=== PATIENT | male | born 1955 | race Caucasian/White ===

== ENCOUNTER 2017-06-29 10:13 | Inpatient (IN) | payer OTHER ==
[2017-06-29] MEDS ORDERED: PANTOPRAZOLE 40 MG/10 ML VIAL IVP STA (10:37)
[2017-06-29] MEDS ORDERED: SODIUM CHLORIDE 0.9% 1,000 ML IV STA (10:37)
[2017-06-29] MEDS ORDERED: DICYCLOMINE 10 MG/ML 2 ML AMP IM STA (10:37)
[2017-06-29] MEDS ORDERED: ONDANSETRON 4 MG/2 ML VIAL IVP STA (10:37)
--- NOTE | 2017-06-29 10:40 | ED ---
General Adult HPI - General Chief complaint: Nausea/Vomiting/Diarrhea Stated complaint: DIARRHEA Time Seen by Provider: 06/29/17 10:28 Source: patient, family, RN notes reviewed Mode of arrival: ambulatory Limitations: no limitations - History of Present Illness Initial comments: Patient is a pleasant 62-year-old male presenting to the emergency Department with diarrhea. Onset of symptoms was just over a week ago. Patient is having diarrhea at least 10 times daily. Patient feels dehydrated. Patient states he has lost approximately 16 pounds in the last couple of weeks. Patient saw his doctor yesterday and again today. Patient has lost more weight since yesterday. Patient had blood work done yesterday with concerns for potassium level and dehydration. Patient has lack of appetite. No vomiting. Patient did have mild blood attribute to a hemorrhoid however none recently. No mucous in the diarrhea. - Related Data Home Medications Medication Instructions Recorded Confirmed Adalimumab [Humira] 80 mg SQ Q14D 12/17/14 06/29/17 Allergies Allergy/AdvReac Type Severity Reaction Status Date / Time No Known Allergies Allergy Verified 06/29/17 10:47 Review of Systems ROS Statement: Those systems with pertinent positive or pertinent negative responses have been documented in the HPI. ROS Other: All systems not noted in ROS Statement are negative. Constitutional: Denies: fever Eyes: Denies: eye pain ENT: Denies: ear pain Respiratory: Denies: dyspnea Cardiovascular: Denies: chest pain Endocrine: Reports: fatigue Gastrointestinal: Reports: abdominal pain (Cramping, mild at this time), nausea , diarrhea. Denies: vomiting, melena Genitourinary: Denies: dysuria Musculoskeletal: Denies: back pain Skin: Denies: rash Neurological: Denies: headache Past Medical History Past Medical History: GERD/Reflux, Hypertension, Rheumatoid Arthritis (RA) History of Any Multi-Drug Resistant Organisms: None Reported Additional Past Surgical History / Comment(s): sinus surgery Past Anesthesia/Blood Transfusion Reactions: No Reported Reaction Past Psychological History: No Psychological Hx Reported Smoking Status: Current every day smoker Past Alcohol Use History: Daily Past Drug Use History: None Reported - Past Family History Mother Family Medical History: No Reported History General Exam Limitations: no limitations General appearance: alert, in no apparent distress Head exam: Present: atraumatic Eye exam: Present: normal appearance, PERRL ENT exam: Present: normal oropharynx Neck exam: Present: normal inspection Respiratory exam: Present: normal lung sounds bilaterally Cardiovascular Exam: Present: regular rate, normal rhythm GI/Abdominal exam: Present: soft, tenderness (Mild diffuse tenderness). Absent : distended, guarding, rebound, rigid, pulsatile mass Extremities exam: Present: normal inspection Neurological exam: Present: alert Psychiatric exam: Present: normal affect, normal mood Skin exam: Present: normal color Course Vital Signs 06/29/17 10:21 Temperature 96.8 F L Pulse Rate 102 H Respiratory 18 Rate Blood Pressure 109/75 O2 Sat by Pulse 98 Oximetry Medical Decision Making - Medical Decision Making Patient reevaluated and resting comfortably in bed. Case discussed with practitioner Iris, who will admit for Dr. valentin, covering for Dr. Chu. - Lab Data Result diagrams: 06/29/17 10:40 06/29/17 10:40 Lab Results 06/29/17 06/29/17 Range/Units 10:40 10:40 WBC 14.6 H (3.8-10.6) k/uL RBC 4.28 L (4.30-5.90) m/uL Hgb 16.1 (13.0-17.5) gm/dL Hct 47.8 (39.0-53.0) % MCV 111.5 H (80.0-100.0) fL MCH 37.5 H (25.0-35.0) pg MCHC 33.7 (31.0-37.0) g/dL RDW 16.4 H (11.5-15.5) % Plt Count 296 (150-450) k/uL Neutrophils % 76 % Lymphocytes % 7 % Monocytes % 13 % Eosinophils % 1 % Basophils % 1 % Neutrophils # 11.1 H (1.3-7.7) k/uL Lymphocytes # 1.1 (1.0-4.8) k/uL Monocytes # 1.9 H (0-1.0) k/uL Eosinophils # 0.1 (0-0.7) k/uL Basophils # 0.1 (0-0.2) k/uL Anisocytosis Slight Macrocytosis Marked Sodium 130 L (137-145) mmol/L Potassium 5.1 (3.5-5.1) mmol/L Chloride 96 L (98-107) mmol/L Carbon Dioxide 22 (22-30) mmol/L Anion Gap 12 mmol/L BUN 34 H (9-20) mg/dL Creatinine 1.15 (0.66-1.25) mg/dL Est GFR (MDRD) Af Amer >60 (>60 ml/min/1.73 sqM) Est GFR (MDRD) Non-Af >60 (>60 ml/min/1.73 sqM) Glucose 106 H (74-99) mg/dL Calcium 9.1 (8.4-10.2) mg/dL Total Bilirubin 0.5 (0.2-1.3) mg/dL AST 23 (17-59) U/L ALT 33 (21-72) U/L Alkaline Phosphatase 94 (38-126) U/L Total Protein 6.5 (6.3-8.2) g/dL Albumin 4.0 (3.5-5.0) g/dL Amylase 72 (30-110) U/L Lipase 249 (23-300) U/L - Radiology Data Radiology results: image reviewed (Abdominal x-ray shows nonspecific abdomen.) Disposition Clinical Impression: Dehydration, Diarrhea Disposition: ADMITTED IP TO THIS [facility] Referrals: Marcos Chu MD [Primary Care Provider] - 1-2 days Decision Time: 12:54
[2017-06-29 11:03] LABS: ALT 33 U/L (21-72); AST 23 U/L (17-59); Alkaline Phosphatase 94 U/L (38-126); Amylase 72 U/L (30-110); Anion Gap 12 mmol/L; Blood Urea Nitrogen 34 mg/dL (9-20); Calcium 9.1 mg/dL (8.4-10.2); Carbon Dioxide 22 mmol/L (22-30); Chloride 96 mmol/L (98-107); Glucose 106 mg/dL (74-99); Lipase 249 U/L (23-300); Potassium 5.1 mmol/L (3.5-5.1); Sodium 130 mmol/L (137-145); Total Bilirubin 0.5 mg/dL (0.2-1.3); Total Protein 6.5 g/dL (6.3-8.2)
[2017-06-29 11:06] LABS: Anisocytosis Slight; Basophils # (A) 0.1 k/uL (0-0.2); Basophils % (A) 1 %; Eosinophils # (A) 0.1 k/uL (0-0.7); Eosinophils % (A) 1 %; HCT 47.8 % (39.0-53.0); HGB 16.1 gm/dL (13.0-17.5); Lymphocytes # (A) 1.1 k/uL (1.0-4.8); Lymphocytes % (A) 7 %; MCH 37.5 pg (25.0-35.0); MCHC 33.7 g/dL (31.0-37.0); MCV 111.5 fL (80.0-100.0); Macrocytosis Marked; Mean Platelet Volume 8.3; Monocytes # (A) 1.9 k/uL (0-1.0); Monocytes % (A) 13 %; Neutrophils # (A) 11.1 k/uL (1.3-7.7); Neutrophils % (A) 76 %; Platelet Count 296 k/uL (150-450); RBC 4.28 m/uL (4.30-5.90); RDW 16.4 % (11.5-15.5); WBC 14.6 k/uL (3.8-10.6)
--- NOTE | 2017-06-29 11:09 | XR ---
EXAMINATION TYPE: XR KUB DATE OF EXAM: 06/29/2017 COMPARISON: NONE HISTORY: Diarrhea abdominal pain TECHNIQUE: One view abdominal series FINDINGS: The osseous structures are intact. The bowel gas pattern is nonspecific. Lung bases are clear. Curv ature of the spine noted. Calcifications in the lower pelvis are likely vascular. Arthropathy of the hips. IMPRESSION: 1. Nonspecific abdomen.
[2017-06-29] MEDS ORDERED: NALOXONE 0.4 MG/ML 1 ML VIAL IV PRN (12:55)
[2017-06-29] MEDS ORDERED: SODIUM CHLORIDE 0.9% 1,000 ML IV SCH (13:00)
[2017-06-29 13:17] LABS: INR 1.1 (<1.2); Prothrombin Time 10.9 sec (9.0-12.0)
[2017-06-29 14:41] LABS: Appearance,Urine Clear (Clear); Bilirubin,Urine Negative (Negative); Blood,Urine Trace (Negative); Color,Urine Yellow; Glucose,Urine (UA) Negative (Negative); Hyaline Casts,Urine 6 /lpf (0-2); Ketones,Urine 1+ (Negative); Leukocyte Esterase,Urine Negative (Negative); Mucus,Urine Few /hpf; Nitrite,Urine Negative (Negative); PH, Urine 5.5 (5.0-8.0); Protein,Urine Trace (Negative); RBC,Urine 1 /hpf (0-5); Specific Gravity,Urine 1.015 (1.001-1.035); Squamous Epithelial Cell,Urine <1 /hpf (0-4); Urobilinogen,Urine <2.0 mg/dL (<2.0); WBC,Urine <1 /hpf (0-5)
--- NOTE | 2017-06-29 19:55 | HP ---
HISTORY AND PHYSICAL DATE OF ADMISSION: 06/29/2017 PRESENT COMPLAINT: Diarrhea. HISTORY OF PRESENTING COMPLAINT: This is a pleasant 62-year-old patient of Dr. Chu. Chronic stable medical conditions include rheumatoid arthritis for which he is on Humira; GERD, some COPD. The patient is long-standing smoker. Six days ago, patient started with severe diarrhea up to 15 times a day, some abdominal pain. No nausea, vomiting. Denies any obvious fever. Continued for few days. The patient did go down to see Dr. Chu in the office and returned this morning, was given Gatorade, still having diarrhea through yesterday evening and hence, he was sent in today. The patient has lost a few pounds in the span of the 6 days. Nobody else has been sick. Today morning actually the diarrhea started getting better. The patient is barely eating and lost a few pounds, he states. Nobody else was sick. REVIEW OF SYSTEMS: CONSTITUTIONAL: Weak, tired, weight loss. HEENT: None. RESPIRATORY: Occasional wheezing. CARDIOVASCULAR: None. GASTROINTESTINAL: As above. GENITOURINARY: None. MUSCULOSKELETAL: None. Arthritic pain in joints. DERMATOLOGICAL: None. HEMATOLOGIC: None. LYMPHATIC: None. PSYCHIATRY: None. NEUROLOGICAL: Denies weakness. 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 PAST SURGICAL HISTORY: Sinus surgery, colonoscopy, bronchoscopy. SOCIAL HISTORY: . Smokes a few cigarettes here and there for many years. The patient is employed. FAMILY HISTORY: Reviewed, noncontributory to presentation. HOME MEDICATIONS: Humira 80 mg subcu every 14 days. ALLERGIES: None. EXAMINATION: VITAL SIGNS: On presentation, temperature 96.8, pulse 102, respirations 18, blood pressure 109/75, pulse ox 98% on room air. GENERAL APPEARANCE: Thin built, BMI of 13.6, sitting up. EYES: Pupils equal. Conjunctivae normal. HEENT: Oral cavity normal. NECK: JVD not raised. Mass not palpable. RESPIRATORY: Effort normal. LUNGS: Decreased breath sounds. CARDIOVASCULAR: First and second sounds normal. No edema. ABDOMEN: Soft. Minimal tenderness. No guarding, rigidity. Liver and spleen not palpable. LYMPHATIC: No lymph nodes palpable in neck or axillae. PSYCHIATRY: Alert and oriented x3. Mood and affect normal. NEUROLOGICAL: Pupils equal. Cranial nerves grossly intact. Power and sensation grossly intact. INVESTIGATIONS: White count 14.6, hemoglobin 16.1. Potassium 5.1, BUN 34, creatinine 1.15. ASSESSMENT: 1. Acute severe gastroenteritis, likely viral in a patient who is immunosuppressed because of Humira. 2. Chronic bilateral rheumatoid arthritis maintained on Humira. 3. Gastroesophageal reflux disease. 4. Chronic obstructive pulmonary disease in a current smoker. 5. Chronic nicotine dependence. Patient is a smoker. 6. Hyponatremia from decreased salt intake. PLAN: Patient is being aggressively hydrated, put on a liquid diet. The patient's diarrhea actually has gotten better today; hence, will hold off any antibiotics. Will give 3 days of Cipro and Flagyl. Care was discussed with the patient and . Questions were answered. MMODL / IJN: [id number] /
[2017-06-29] MEDS: LACTATED RINGERS 1,000 ML IV SCH (22:02)
[2017-06-29] MEDS: CIPROFLOXACIN HCL 500 MG TAB PO SCH (22:02)
[2017-06-29] MEDS: metroNIDAZOLE 500 MG TAB PO SCH (22:02)
[2017-06-29] MEDS: NICOTINE 14MG/24HR PATCH TRANSDERM SCH ×2 (22:02→22:13)
[2017-06-30] MEDS: LACTATED RINGERS 1,000 ML IV SCH ×2 (05:32→13:34)
[2017-06-30] MEDS: NICOTINE 14MG/24HR PATCH TRANSDERM SCH (07:47)
[2017-06-30 08:31] VITALS: RESP 16
[2017-06-30 08:47] LABS: ALT 31 U/L (21-72); AST 19 U/L (17-59); Albumin 2.4 g/dL (3.5-5.0); Alkaline Phosphatase 63 U/L (38-126); Anion Gap 5 mmol/L; Blood Urea Nitrogen 16 mg/dL (9-20); Calcium 7.8 mg/dL (8.4-10.2); Carbon Dioxide 26 mmol/L (22-30); Chloride 99 mmol/L (98-107); Glucose 83 mg/dL (74-99); Potassium 3.9 mmol/L (3.5-5.1); Sodium 130 mmol/L (137-145); Total Bilirubin 0.4 mg/dL (0.2-1.3); Total Protein 4.3 g/dL (6.3-8.2)
[2017-06-30 08:58] LABS: Anisocytosis Slight; Basophils % (A) 0 %; Eosinophils # (A) 0.1 k/uL (0-0.7); Eosinophils % (A) 1 %; HCT 36.3 % (39.0-53.0); Lymphocytes # (A) 0.7 k/uL (1.0-4.8); Lymphocytes % (A) 10 %; MCH 36.8 pg (25.0-35.0); MCV 111.4 fL (80.0-100.0); Macrocytosis Marked; Mean Platelet Volume 8.6; Monocytes # (A) 0.9 k/uL (0-1.0); Monocytes % (A) 12 %; Neutrophils # (A) 5.4 k/uL (1.3-7.7); Neutrophils % (A) 75 %; Platelet Count 185 k/uL (150-450); RBC 3.26 m/uL (4.30-5.90); RDW 16.3 % (11.5-15.5); WBC 7.2 k/uL (3.8-10.6)
[2017-06-30] MEDS ORDERED: PANTOPRAZOLE 40 MG/10 ML VIAL IV SCH (09:00)
[2017-06-30] MEDS: CIPROFLOXACIN HCL 500 MG TAB PO SCH (09:15)
[2017-06-30] MEDS: metroNIDAZOLE 500 MG TAB PO SCH ×2 (09:15→15:49)
[2017-06-30] MEDS ORDERED: ADALIMUMAB 80 MG SQ SCH (10:00)
[2017-06-30 10:57] LABS: Poikilocytosis (M) Present
[2017-06-30 10:58] LABS: Target Cells Present
[2017-06-30 12:00] VITALS: BMI 13.5
[2017-06-30 15:36] VITALS: BP 108/76; PULSE 71; TEMP 98.7
[2017-06-30] MEDS ORDERED: LACTOBACILLUS ACIDOPH & BULGAR 1 EACH PACKET PO SCH (16:00)
--- NOTE | 2017-06-30 19:05 | DS ---
DISCHARGE SUMMARY DATE OF ADMISSION: 06/29/2017. DATE OF DISCHARGE: 06/30/2017 FINAL DIAGNOSES: 1. Acute severe gastritis, likely viral in an immunosuppressed patient because of Humira. 2. Chronic bilateral rheumatoid arthritis, maintained on Humira. 3. Gastroesophageal reflux disease. 4. Chronic obstructive pulmonary disease in a current smoker. 5. Chronic nicotine dependence; patient is a smoker. 6. Hyponatremia from decreased salt intake. HOSPITAL COURSE: This patient presented with severe gastroenteritis, getting dehydrated. Patient was empirically put on Flagyl and Cipro just to cover any bacterial component. Diarrhea is much improved. He was hydrated. The patient was told to remain on a soft diet and take is easy and follow with his family doctor. BUN and creatinine are normal. PHYSICAL EXAMINATION: Abdomen is soft, nontender. LUNGS: Decreased breath sounds. DISCHARGE MEDICATIONS: 1. Humira 80 mg subcutaneously every 14 days. 2. Cipro 500 mg p.o. b.i.d.; 4 tablets. 3. Lactinex 1 tablet p.o. t.i.d.; 30 tablets. 4. Nicotine patch. 5. Flagyl 500 mg t.i.d.; 6 tablets. Follow up with Dr. Chu in 3 days. Diet soft, bland. MMODL / IJN: [id number] /
[2017-07-01] MEDS ORDERED: ADALIMUMAB 40 MG SQ SCH (09:00)
[2017-07-07 18:11] LABS: Cryptosporidium parvum Not detected (Not detected); Isospora belli Not detected (Not detected); Microsporidium Not detected (Not detected); Routine Ova and Parasites Not detected
== END 2017-06-30 16:47 | disposition home or self-care (01) | DRG 392 ==
LOC: EC 10:13 → 5MS5E 12:55 → 4MS4W 15:44
PROVIDERS: ADMIT Hospitalist; ATTEND Hospitalist
DX: A08.4 Viral intestinal infection, unspecified (principal); E87.1 Hypo-osmolality and hyponatremia; E86.0 Dehydration; F17.210 Nicotine dependence, cigarettes, uncomplicated; I10 Essential (primary) hypertension; J44.9 Chronic obstructive pulmonary disease, unspecified; K21.9 Gastro-esophageal reflux disease without esophagitis; M06.9 Rheumatoid arthritis, unspecified; Z85.21 Personal history of malignant neoplasm of larynx; Z92.3 Personal history of irradiation; Z79.899 Other long term (current) drug therapy
CPT/HCPCS: 36415; 74018; 80053; 81001; 82150; 83690; 85025; 85610; 85730; 87045; 87046; 87177; 87207; 87209; 87324; 89055; 96361; 96372; 96374; 96375; 99285

== ENCOUNTER → 2018-12-04 | Outpatient (CLI) | payer BC ==
--- NOTE | 2018-12-04 13:07 | CT ---
EXAMINATION TYPE: CT soft tissue neck w con DATE OF EXAM: 12/04/2018 12:11 PM COMPARISON: None HISTORY: Epiglottis lesion CT DLP: 322.9 mGycm Automated exposure control for dose reduction was used. CONTRAST: CT scan of the neck is performed following with IV Contrast, patient injected with 100 mL of Isovue 3 00. Axial images are obtained, coronal and sagittal reformatted images are reviewed. FINDINGS: Airway: No gross abnormality seen. Extensive centrilobular emphysematous changes are present within t he visualized portions of the lungs, apical scarring is present bilaterally. Bronchial wall thickenin g noted. Parotid/submandibular glands: No gross abnormality seen. Carotid/Vascular Structures: Proximal left subclavian stenosis is present. No evident proximal manager of internal al carotid artery stenosis Osseous Structures: Unremarkable Other: No evident adenopathy. Skull base is normal. Orbits are unremarkable. Patient's epiglottis is not well-defined and may be foreshortened IMPRESSION: Limitations as described. No evident adenopathy.
== END | disposition home or self-care (01) ==
LOC: RADCTMAIN 11:44
PROVIDERS: ATTEND Otolaryngology
DX: D38.0 Neoplasm of uncertain behavior of larynx (principal)
CPT/HCPCS: 70491; Q9967

== ENCOUNTER 2019-01-09 11:17 | Day surgery (SDC) | payer BC ==
[2019-01-07 08:47] VITALS: BMI 14.6
[~2019-01-09 11:17] MED LIST: DEXAMETHASONE SOD PHOSPHATE 10 MG/ML 1 ML VIAL IV ONE; FAMOTIDINE 20 MG/2 ML VIAL IV ONE; LACTATED RINGERS 1,000 ML IV SCH; LIDOCAINE 1% 20 ML VIAL (10MG/ML) FOR IV START INTRADERMA PRN; ONDANSETRON 4 MG/2 ML VIAL IVP ONE
[2019-01-09] MEDS ORDERED: LACTATED RINGERS 1,000 ML IV ONE (13:09)
[2019-01-09] MEDS ORDERED: LIDOCAINE 1% INJ 10MG/ML (20 ML MDV) ONE (13:46)
[2019-01-09] MEDS ORDERED: MIDAZOLAM 2 MG/2 ML VIAL ONE (13:46)
[2019-01-09] MEDS ORDERED: DEXAMETHASONE SOD PHOS (MDV) 100 MG/10 ML VIAL ONE (13:46)
[2019-01-09] MEDS ORDERED: PROPOFOL 10 MG/ML 20 ML VIAL IV ONE (13:46)
[2019-01-09] MEDS ORDERED: SUCCINYLCHOLINE CHLORIDE 100 MG/5 ML SYR IV ONE (13:46)
[2019-01-09] MEDS ORDERED: fentaNYL (PF) 50 MCG/ML 2 ML AMP ONE (13:46)
--- NOTE | 2019-01-09 14:23 | P.OP ---
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 He's had difficulties over the last several months with sore throat and dysphagia due to the soreness. The laryngeal surface epiglottis appeared abnormal on flexible laryngoscopy Operative Findings: Exophytic but ulcerative lesion involving the entire laryngeal surface of the epiglottis approximate 2.5 MM ears across Description of Procedure: Patient brought in the operative suite and placed in a supine position. Patient underwent induction of general anesthesia with oral endotracheal intubation without difficulty. The patient was prepped and draped in usual aseptic fashion. The patient had digital palpation of the base of tongue and vallecula with no abnormalities palpated. The tooth guard was placed and rigid esophagoscopy was performed to a level of 35 cm from the upper incisors with no abnormalities noted and no mucosal trauma created. This was then withdrawn. Direct laryngoscopy was performed with systematic evaluation of the base of tongue vallecula bilateral piriform sinus post cricoid area and endolarynx. Other than the epiglottis no abnormalities were noted. The epiglottis was brought into good visualization and the laryngoscope was placed in suspension. Flexible laryngoscopy was performed through the laryngoscope to evaluate the distal trachea and primary and secondary bronchi with no abnormalities noted. Bronchoscope was then withdrawn. Multiple biopsies were then taken of the laryngeal surface epiglottis and sent for permanent section. Hemostasis was gained spontaneously. The laryngoscope and tooth guard were then removed. The patient was allowed to emerge from general anesthesia having tolerated procedure well was excised in the operating suite and transferred to the postop recovery area in satisfactory condition.
[2019-01-09 14:42] VITALS: RESP 16; TEMP 97.4
[2019-01-09 15:54] VITALS: BP 132/86; PULSE 63
== END 2019-01-09 16:28 | disposition home or self-care (01) ==
LOC: OR 11:17
PROVIDERS: ATTEND Otolaryngology
DX: C32.1 Malignant neoplasm of supraglottis (principal); J45.909 Unspecified asthma, uncomplicated; J43.9 Emphysema, unspecified; I10 Essential (primary) hypertension; M06.9 Rheumatoid arthritis, unspecified; H26.9 Unspecified cataract; F17.200 Nicotine dependence, unspecified, uncomplicated; Z92.3 Personal history of irradiation; Z79.2 Long term (current) use of antibiotics; Z79.1 Long term (current) use of non-steroidal anti-inflammatories (NSAID); Z79.82 Long term (current) use of aspirin; Z79.52 Long term (current) use of systemic steroids; Z79.899 Other long term (current) drug therapy; Z91.048 Other nonmedicinal substance allergy status; Z98.890 Other specified postprocedural states; Z82.0 Family history of epilepsy and other diseases of the nervous system; Z82.49 Family history of ischemic heart disease and other diseases of the circulatory system
CPT/HCPCS: 43200; 31535; 88305; 88342; 88341; J2250; J1100 ×2; J2405; J2001; J3010; J0330; J2704

== ENCOUNTER → 2019-02-09 | Outpatient (CLI) | payer BC ==
--- NOTE | 2019-02-11 09:00 | PE ---
EXAMINATION TYPE: PET CT fusion skull to thigh DATE OF EXAM: 02/09/2019 COMPARISON: 12/04/2018 CT Prior PET/CT: None HISTORY: Head and neck cancer larynx TECHNIQUE: Following the intravenous administration of 11.429 mCi of F-18 FDG, whole body images are performed from the skull base to the midthigh. Images are reviewed on the computer in the coronal, axial, and sagittal planes. Reconstructed rotating images are created on independent workstation and reviewed on the computer. A localization and attenuation correction CT is performed in conjunction with the PET scan. DLP: 24.13+160.03 mGycm SCAN: Initial Blood glucose: 97 mg/dL Average Mediastinum SUV: 1.32 Average Liver SUV: 1.93 FINDINGS: NECK: There is uptake at the bilateral tonsillar pillars. This measures 3.78 on the right and 3.82 o n the left. PET image 43. Uptake is also present along the epiglottis. This measures 4.83, PET image 60. Suspicious uptake with in the right fossa of Rosenmuller is not evident. Findings appear more focal on the dedicated head an d neck imaging. THORAX: No abnormal uptake ABDOMEN: No abnormal uptake PELVIS: No abnormal uptake OSSEOUS STRUCTURES: No abnormal uptake LOCALIZATION CT: There is some fullness to the right fossa of Rosenmuller.. Consider direct visualiza tion. Right apical scarring may be present. The ascending thoracic aorta at the level the main pulmon alexandru artery is 3.6 cm. The main pulmonary artery the bifurcation is 3.0 cm. COMPARISON: No significant change from soft tissue neck CT. IMPRESSION: 1. Uptake within the epiglottis compatible with the patient's neoplasm. 2. Increased uptake within the bilateral tonsillar pillars. No metastatic disease is not excluded. 3. Distant metastasis is not otherwise evident. 4. There is some fullness within the right fossa of Rosenmuller compared to the left without increase d uptake. Direct visualization however is recommended.
== END | disposition home or self-care (01) ==
LOC: RADPETMAIN 11:49
PROVIDERS: ATTEND Otolaryngology
DX: C32.8 Malignant neoplasm of overlapping sites of larynx (principal)
CPT/HCPCS: 78815; A9552

== ENCOUNTER 2019-08-08 10:21 | Emergency (ER) | payer BC ==
[2019-08-08 10:48] VITALS: BP 137/95; PULSE 87; TEMP 97.7
[2019-08-08] MEDS ORDERED: HYDROmorphone 0.5 MG/0.5 ML SYRINGE IM STA (11:26)
--- NOTE | 2019-08-08 12:00 | ED ---
Recheck HPI - General Chief Complaint: Recheck/Abnormal Lab/Rx Stated Complaint: feeding tube pulled out of stomach Time Seen by Provider: 08/08/19 10:54 Source: patient Mode of arrival: ambulatory Limitations: no limitations - History of Present Illness Initial Comments: 64-year-old male presenting today for chief complaint of PEG tube follow-up. Patient states he was letting the dog out when and he got his peg tube caught and it pulled out with balloon inflated. PEG tube was placed February 2019. Patient states the bleeding has been controlled initially there is bleeding coming from the site of the PEG tube. Patient has any other complaints upon arrival patient appears well signs acute distress PEG tube is a 20-Tongan Justin. remaining ROS (-). - Related Data Home Medications Medication Instructions Recorded Confirmed Aspirin 2 tab PO DAILY 01/07/19 01/07/19 Cholecalciferol (Vitamin D3) 2,000 unit PO DAILY 01/07/19 01/07/19 [Vitamin D3] Famotidine 40 mg PO DAILY 01/07/19 01/07/19 Fluticasone Nasal Pease [Flonase 2 spr EA NOSTRIL DAILY 01/07/19 01/07/19 Nasal Pease] Folic Acid 1 mg PO DAILY 01/07/19 01/07/19 Losartan/Hydrochlorothiazide 0.5 tab PO DAILY 01/07/19 01/07/19 [Losartan-Hctz 100-25 mg Tab] Metoclopramide [Reglan] 10 mg PO DAILY 01/07/19 01/07/19 Montelukast [Singulair] 10 mg PO DAILY 01/07/19 01/07/19 Omeprazole 40 mg PO DAILY 01/07/19 01/07/19 Tiotropium 18 Mcg/Puff [Spiriva] 1 puff INHALATION DAILY 01/07/19 01/07/19 Vit C/E/Zn/Coppr/Lutein/Zeaxan 1 each PO DAILY 01/07/19 01/07/19 [Preservision Areds 2 Softgel] Allergies Allergy/AdvReac Type Severity Reaction Status Date / Time No Known Allergies Allergy Verified 08/08/19 10:47 Review of Systems ROS Statement: Those systems with pertinent positive or pertinent negative responses have been documented in the HPI. ROS Other: All systems not noted in ROS Statement are negative. Past Medical History Past Medical History: Cancer, COPD, GERD/Reflux, Hypertension, Rheumatoid Arthritis (RA) Additional Past Medical History / Comment(s): Laryngeal cancer with radiation about 6 yrs ago History of Any Multi-Drug Resistant Organisms: None Reported Additional Past Surgical History / Comment(s): sinus surgery, colonoscopy, bronchoscopy.largynx peg tube Past Anesthesia/Blood Transfusion Reactions: No Reported Reaction Past Psychological History: No Psychological Hx Reported Smoking Status: Former smoker Past Alcohol Use History: Occasional Past Drug Use History: None Reported - Past Family History Father Family Medical History: No Reported History Additional Family Medical History / Comment(s): Father lived to be almost 90 yrs old. Brother(s) Family Medical History: Myocardial Infarction ([place]) Mother Family Medical History: No Reported History Additional Family Medical History / Comment(s): Mother lived to be 94 yrs old. General Exam - General Exam Comments Initial Comments: General: The patient is awake and alert, in no distress, and does not appear acutely ill. Eye: +3 mm pupils are equal, round and reactive to light, extra-ocular movements are intact. No nystagmus. There is normal conjunctiva bilaterally. No signs of icterus. Cardiovascular: There is a regular rate and rhythm. No murmur, rub or gallop is appreciated. Respiratory: Lungs are clear to auscultation, respirations are non-labored, breath sounds are equal. No wheezes, stridor, rales, or rhonchi. Gastrointestinal: Soft, non-distended, non-tender abdomen without masses or organomegaly noted. There is no rebound or guarding present. hole left upper abdomen, no active bleeding, mild swelling of stoma. Musculoskeletal: Normal ROM, no tenderness. Strength 5/5. Sensation intact. Pulses equal bilaterally 2+. Neurological: A&O x 3. CN II-XII intact grossly, There are no obvious motor or sensory deficits. Coordination appears grossly intact. Speech is normal. Skin: Skin is warm and dry and no rashes or lesions are noted. Psychiatric: Cooperative, appropriate mood & affect, normal judgment. Limitations: no limitations Course Vital Signs 08/08/19 08/08/19 10:43 11:42 Temperature 97.7 F Pulse Rate 87 Respiratory 18 20 Rate Blood Pressure 137/95 O2 Sat by Pulse 97 Oximetry Medical Decision Making - Medical Decision Making 64-year-old male presenting today for chief complaint of postop PEG tube. With attending provider bedside PEG tube was replaced with a 20-Tongan Justin, 10ml balloon. Patient had some pain with procedure however over all went without complication. Pt given IM dilaudid, monitored in ER after admin. Patient KUB with contrast revealed proper placement. Patient will be discharged wt surgical and PCP f/u. Patient is agreeable to this care plan discharge at this time pain control upon discharge Disposition Clinical Impression: PEG tube malfunction Disposition: HOME SELF-CARE Condition: Good Instructions (If sedation given, give patient instructions): PEG Tube Insertion (DC) Additional Instructions: Please use medication as discussed. Please follow-up with family doctor in the next 2 days, contact surgeon. Please return to emergency room if the symptoms increase or worsen or for any other concerns. Is patient prescribed a controlled substance at d/c from ED?: No Referrals: Marcos Chu MD [Primary Care Provider] - 1-2 days Time of Disposition: 12:57
[2019-08-08 12:30] VITALS: RESP 20
--- NOTE | 2019-08-08 12:36 | XR ---
KUB, Peg o gram HISTORY: Check PEG tube placement Frontal KUB submitted, contrast is present within the PEG tube as well as in the stomach and proximal small bowel. There is no evident pneumoperitoneum. Lung bases are clear. IMPRESSION: Luminal placement of contrast material
== END 2019-08-08 13:14 | disposition home or self-care (01) ==
LOC: EC 10:21
DX: K94.21 Gastrostomy hemorrhage (principal); J44.9 Chronic obstructive pulmonary disease, unspecified; K21.9 Gastro-esophageal reflux disease without esophagitis; I10 Essential (primary) hypertension; M06.9 Rheumatoid arthritis, unspecified; Z87.891 Personal history of nicotine dependence; Z79.51 Long term (current) use of inhaled steroids; Z79.82 Long term (current) use of aspirin; Z79.899 Other long term (current) drug therapy; Z85.21 Personal history of malignant neoplasm of larynx; Z92.3 Personal history of irradiation
CPT/HCPCS: 74018; 99283; 43762; 96372; J1170

== ENCOUNTER → 2019-09-07 | Outpatient (CLI) | payer BC, MEDICARE ==
--- NOTE | 2019-09-10 06:34 | PE ---
EXAMINATION TYPE: PET CT fusion skull to thigh DATE OF EXAM: 09/07/2019 COMPARISON: Neck CT December 04, 2018. PET/CT February 09, 2019. HISTORY: Throat cancer diagnosed in summer 2018 progress study. History of surgery March 07 wit h radiation treatment ending June 2019 and chemotherapy ending July 12, 2019. TECHNIQUE: Following the intravenous administration of 10.95 mCi of F-18 FDG, whole body images are performed from the skull base to the midthigh. Images are reviewed on the computer in the coronal, a xial, and sagittal planes. Reconstructed rotating images are created on independent workstation and reviewed on the computer. A noncontrast CT is performed in conjunction with the PET scan. Dedicated PET/CT imaging of the neck is also performed. SCAN: Subsequent Scan FINDINGS: SKULL BASE AND NECK: Evidence of interval significant bilateral radical neck dissection surgery with bilateral clips in the neck at the submandibular level extending inferiorly with resection of vocal cord and adjacent thyroid cartilage including thyroid gland. No new areas of suspicious hypermetaboli c uptake. Small focus of hypermetabolic uptake right thyroid inlet axial image 72 is noted. Max SUV is 3.8. CHEST, MEDIASTINUM, AND HILAR REGION: No new areas of suspicious hypermetabolic uptake. ABDOMEN AND PELVIS: No new areas of suspicious hypermetabolic uptake. OSSEOUS STRUCTURES: No new areas of suspicious hypermetabolic uptake. OTHER CT: Injection site right elbow noted. Background at least moderate underlying emphysematous aimee nge is redemonstrated. Coronary artery calcification is present which is noted marked underlying erika nary artery disease. Tiny pericardial effusion. New PEG tube. Prominent right-sided pelvic phleboliths. IMPRESSION: Extensive bilateral neck surgery with small suspicious focus right thyroid inlet level sh ould be correlated clinically and with pathology findings are extensive bilateral surgical resection. No new metastatic disease.
== END | disposition home or self-care (01) ==
LOC: RADPETMAIN 07:56
PROVIDERS: ATTEND Internal Medicine Hematology & Oncology
DX: C76.0 Malignant neoplasm of head, face and neck (principal); Z98.890 Other specified postprocedural states
CPT/HCPCS: 78815; A9552

== ENCOUNTER 2019-11-27 09:51 | Emergency (ER) | payer BC, MEDICARE ==
--- NOTE | 2019-11-27 10:09 | ED ---
General Adult HPI - General Stated complaint: Blocked stoma Time Seen by Provider: 11/27/19 09:54 Source: patient, EMS, RN notes reviewed Mode of arrival: EMS Limitations: language barrier (Previous laryngectomy. Patient indicates with writing and reading lips/agreeing with statements) - History of Present Illness Initial comments: Patient is a pleasant 64-year-old male presenting to the emergency department with concerns for blocked stoma. Patient had laryngectomy February 2019. Patient had voice prosthesis placed on Monday of last week. Patient had a lot of mucus and was trying to clean it out. Patient accidentally pulled out his voice prosthesis. Patient did have bleeding however that is controlled at this time. EMS further suction the patient with significant improvement of symptoms. Patient states that only feels like there is a small amount of mucus present at this point and is overall breathing very well. - Related Data Home Medications Medication Instructions Recorded Confirmed Cholecalciferol (Vitamin D3) 2,000 unit PO DAILY 01/07/19 11/27/19 [Vitamin D3] Folic Acid 1 mg PO DAILY 01/07/19 11/27/19 Losartan/Hydrochlorothiazide 0.5 tab PO DAILY 01/07/19 11/27/19 [Losartan-Hctz 100-25 mg Tab] Omeprazole 40 mg PO DAILY 01/07/19 11/27/19 Vit C/E/Zn/Coppr/Lutein/Zeaxan 1 tab PO BID 01/07/19 11/27/19 [Preservision Areds 2 Softgel] Amitriptyline HCl 25 mg PO HS 11/27/19 11/27/19 Allergies Allergy/AdvReac Type Severity Reaction Status Date / Time No Known Allergies Allergy Verified 11/27/19 10:26 Review of Systems ROS Statement: Those systems with pertinent positive or pertinent negative responses have been documented in the HPI. ROS Other: All systems not noted in ROS Statement are negative. Constitutional: Denies: fever Eyes: Denies: eye pain ENT: Reports: as per HPI. Denies: ear pain Respiratory: Reports: as per HPI Cardiovascular: Denies: chest pain Endocrine: Denies: fatigue Gastrointestinal: Denies: abdominal pain Genitourinary: Denies: dysuria Musculoskeletal: Denies: back pain Skin: Denies: rash Neurological: Denies: weakness Past Medical History Past Medical History: Cancer, COPD, GERD/Reflux, Hypertension, Rheumatoid Arthritis (RA) Additional Past Medical History / Comment(s): Laryngeal cancer with radiation about 6 yrs ago History of Any Multi-Drug Resistant Organisms: None Reported Additional Past Surgical History / Comment(s): sinus surgery, colonoscopy, bronc hoscopy.largynx peg tube Past Anesthesia/Blood Transfusion Reactions: No Reported Reaction Past Psychological History: No Psychological Hx Reported Smoking Status: Former smoker Past Alcohol Use History: Occasional Past Drug Use History: None Reported - Past Family History Father Family Medical History: No Reported History Additional Family Medical History / Comment(s): Father lived to be almost 90 yrs old. Brother(s) Family Medical History: Myocardial Infarction ([place]) Mother Family Medical History: No Reported History Additional Family Medical History / Comment(s): Mother lived to be 94 yrs old. General Exam Limitations: no limitations General appearance: alert, in no apparent distress Head exam: Present: normocephalic Eye exam: Present: normal appearance, PERRL ENT exam: Present: other (Patient has stoma present with some mucus. Mucus is cleared out externally and appears clear after this.) Neck exam: Present: other (Stoma) Respiratory exam: Present: normal lung sounds bilaterally Cardiovascular Exam: Present: regular rate, normal rhythm GI/Abdominal exam: Present: soft. Absent: tenderness Extremities exam: Present: normal inspection Neurological exam: Present: alert Psychiatric exam: Present: normal affect, normal mood Skin exam: Present: normal color Course Vital Signs 11/27/19 11/27/19 10:07 10:12 Temperature 98.1 F Pulse Rate 94 Respiratory 20 20 Rate Blood Pressure 124/93 O2 Sat by Pulse 97 Oximetry Medical Decision Making - Medical Decision Making Case was discussed twice with Dr. wilson, who works out of, pulse at [facility] and [facility]. She requests patient drive to come on most [facility] to the [facility] and ask for Dr. Cantrell. He will have voice prosthesis replaced today. Patient is explained this and does demonstrate understanding. Patient remains symptom-free at this time. No bleeding. Patient was also gently suctioned by respiratory prior to discharge. Disposition Clinical Impression: Mechanical complication of voice prosthesis, Stomal bleeding Disposition: HOME SELF-CARE Condition: Stable Instructions (If sedation given, give patient instructions): Dyspnea (ED) Additional Instructions: Please go directly to [facility]. [facility] to [facility] and ask for Dr. Cantrell. They will replace your voice prosthesis today if you go there immediately. Return for any difficulty in breathing, bleeding, worsening or change in symptoms or other concerns. Is patient prescribed a controlled substance at d/c from ED?: No Referrals: Marcos Chu MD [Primary Care Provider] - 1-2 days Time of Disposition: 10:34
[2019-11-27 10:16] VITALS: TEMP 98.1
[2019-11-27 10:56] VITALS: BP 127/95; PULSE 84; RESP 16
== END 2019-11-27 10:55 | disposition home or self-care (01) ==
LOC: EC 09:51
DX: T85.698A Other mechanical complication of other specified internal prosthetic devices, implants and grafts, initial encounter (principal); J95.01 Hemorrhage from tracheostomy stoma; K21.9 Gastro-esophageal reflux disease without esophagitis; I10 Essential (primary) hypertension; Z85.21 Personal history of malignant neoplasm of larynx; Z87.891 Personal history of nicotine dependence; Z92.3 Personal history of irradiation
CPT/HCPCS: 99283

== ENCOUNTER 2019-12-02 15:54 | Emergency (ER) | payer BC, MEDICARE ==
[2019-12-02 17:49] VITALS: RESP 20
--- NOTE | 2019-12-02 18:23 | ED ---
General Adult HPI - General Chief complaint: Shortness of Breath Stated complaint: phlegm in trach Time Seen by Provider: 12/02/19 16:07 Source: EMS Mode of arrival: EMS Limitations: no limitations - History of Present Illness Initial comments: 64-year-old male with tracheostomy presented for chief complaint of phlegm in the trach. Patient states he feels like he has phlegm/mucus in his trach he states he often picks it out with tweezers. Patient states that he felt like he needed suction and came to the emergency department. Patient denies any chest pain he states it feels like there is obstruction at the trach otherwise no dyspnea. Patient denies any chest pressure or pain with deep inspiration. Patient denies any leg swelling, calf tenderness or posterior leg pain. Patient states he has not had a fever denies new cough. Remaining review of systems negative upon arrival patient appears well noted distress history obtained from typing on phone. - Related Data Home Medications Medication Instructions Recorded Confirmed Cholecalciferol (Vitamin D3) 2,000 unit PO DAILY 01/07/19 11/27/19 [Vitamin D3] Folic Acid 1 mg PO DAILY 01/07/19 11/27/19 Losartan/Hydrochlorothiazide 0.5 tab PO DAILY 01/07/19 11/27/19 [Losartan-Hctz 100-25 mg Tab] Omeprazole 40 mg PO DAILY 01/07/19 11/27/19 Vit C/E/Zn/Coppr/Lutein/Zeaxan 1 tab PO BID 01/07/19 11/27/19 [Preservision Areds 2 Softgel] Amitriptyline HCl 25 mg PO HS 11/27/19 11/27/19 Celecoxib [CeleBREX] 200 mg PO HS 11/27/19 11/27/19 Ipratropium Beatrice [Ipratropium 2 sprays EA NOSTRIL BID 11/27/19 11/27/19 Beatrice 0.03%] Levothyroxine Sodium [Synthroid] 150 mcg PO DAILY 11/27/19 11/27/19 Allergies Allergy/AdvReac Type Severity Reaction Status Date / Time No Known Allergies Allergy Verified 11/27/19 10:26 Review of Systems ROS Statement: Those systems with pertinent positive or pertinent negative responses have been documented in the HPI. ROS Other: All systems not noted in ROS Statement are negative. Past Medical History Past Medical History: Cancer, COPD, GERD/Reflux, Hypertension, Rheumatoid Arthritis (RA) Additional Past Medical History / Comment(s): Laryngeal cancer with radiation about 6 yrs ago History of Any Multi-Drug Resistant Organisms: None Reported Additional Past Surgical History / Comment(s): sinus surgery, colonoscopy, bronchoscopy.largynx peg tube Past Anesthesia/Blood Transfusion Reactions: No Reported Reaction Past Psychological History: No Psychological Hx Reported Smoking Status: Former smoker Past Alcohol Use History: Occasional Past Drug Use History: None Reported - Past Family History Father Family Medical History: No Reported History Additional Family Medical History / Comment(s): Father lived to be almost 90 yrs old. Brother(s) Family Medical History: Myocardial Infarction ([place]) Mother Family Medical History: No Reported History Additional Family Medical History / Comment(s): Mother lived to be 94 yrs old. General Exam - General Exam Comments Initial Comments: General: The patient is awake and alert, in no distress, and does not appear acutely ill. Eye: Pupils are equal, round and reactive to light, extra-ocular movements are intact. No nystagmus. There is normal conjunctiva bilaterally. No signs of icterus. Ears, nose, mouth and throat: There are moist mucous membranes and no oral lesions. Neck: The neck is supple, there is no tenderness or JVD. The anterior neck trachea is in place there appears to be some phlegm/mucus within it. Cardiovascular: There is a regular rate and rhythm. No murmur, rub or gallop is appreciated. Respiratory: Lungs are clear to auscultation, respirations are non-labored, breath sounds are equal. No wheezes, stridor, rales, or rhonchi. Musculoskeletal: Normal ROM, no tenderness. Strength 5/5. Sensation intact. Radial pulses equal bilaterally 2+. Neurological: A&O x 3. CN II-XII intact, There are no obvious motor or sensory deficits. Coordination appears grossly intact. Speech is normal. Skin: Skin is warm and dry and no rashes or lesions are noted. No calf or leg swekkubg, Psychiatric: Cooperative, appropriate mood & affect, normal judgment. Limitations: no limitations Course Vital Signs 12/02/19 12/02/19 12/02/19 16:01 16:06 16:07 Temperature 98.0 F Pulse Rate 100 95 Respiratory 20 20 Rate Blood Pressure 137/92 O2 Sat by Pulse 94 L 95 96 Oximetry 12/02/19 12/02/19 12/02/19 16:09 17:48 18:31 Temperature 98.2 F Pulse Rate 92 Respiratory 22 20 20 Rate Blood Pressure 151/93 O2 Sat by Pulse 98 98 Oximetry Medical Decision Making - Medical Decision Making This 64-year-old male presenting for phlegm/mucus and trach. After deep suction patient states he feels better however he would like me to pull with tweezers on the dried pieces. I inspected the tracheostomy there does not appear to be significant dried phlegm patient was monitored and given humidified oxygen for over one hour. Deep suction was performed again and then patient was requesting discharge. Denies any current shortness of breath. Discussed case wtih Dr. Hare who is agreeable to care plan, w/u and discharge. Disposition Clinical Impression: Phlegm in throat Disposition: HOME SELF-CARE Condition: Good Instructions (If sedation given, give patient instructions): Tracheotomy (DC) Additional Instructions: Please use medication as discussed. Please follow-up with family doctor in the next 2 days. Please return to emergency room if the symptoms increase or worsen or for any other concerns. Is patient prescribed a controlled substance at d/c from ED?: No Referrals: Marcos Chu MD [Primary Care Provider] - 1-2 days Time of Disposition: 18:23
[2019-12-02 18:32] VITALS: BP 151/93; PULSE 92; TEMP 98.2
== END 2019-12-02 18:31 | disposition home or self-care (01) ==
LOC: EC 15:54
DX: R09.89 Other specified symptoms and signs involving the circulatory and respiratory systems (principal); J44.9 Chronic obstructive pulmonary disease, unspecified; K21.9 Gastro-esophageal reflux disease without esophagitis; I10 Essential (primary) hypertension; Z93.0 Tracheostomy status; Z79.890 Hormone replacement therapy; Z79.51 Long term (current) use of inhaled steroids; Z79.899 Other long term (current) drug therapy; Z87.891 Personal history of nicotine dependence; Z85.21 Personal history of malignant neoplasm of larynx; Z92.3 Personal history of irradiation
CPT/HCPCS: 99284

== ENCOUNTER → 2020-01-17 | Outpatient (CLI) | payer BC, MEDICARE ==
--- NOTE | 2020-01-18 14:47 | PE ---
EXAMINATION TYPE: PET CT fusion skull to thigh DATE OF EXAM: 01/17/2020 COMPARISON: 12/04/2018 soft tissue neck Prior PET/CT: 09/07/2019 HISTORY: Head and neck laryngeal cancer TECHNIQUE: Following the intravenous administration of 11.9 mCi of F-18 FDG, whole body images are p erformed from the skull base to the midthigh. Images are reviewed on the computer in the coronal, ax ial, and sagittal planes. Reconstructed rotating images are created on independent workstation and r eviewed on the computer. A localization and attenuation correction CT is performed in conjunction w ith the PET scan. DLP: 268.1 mGycm SCAN: Subsequent Blood glucose: 100 mg/dL Average Mediastinum SUV: 1.44 Average Liver SUV: 1.96 FINDINGS: NECK: There is increased uptake in the region of the larynx. Image 72 on whole body imaging Dedicated head and neck imaging is performed. There is focal radiotracer accumulation along the anter ior neck at the superior right lateral tracheostomy site. PET image 71. SUV value 8.18, previous SUV 3.8. Small recurrence should be considered. THORAX: There is a focal area of increased radiotracer accumulation along the pleural margin posterio r to the rib anterior right upper chest. PET image 95. SUV value 2. Metastatic lesion should be consi dered. There is an area of increased signal along the pleural margin between ribs and anterior latera l right upper lobe. PET image 111. SUV value 1.64. This is nonspecific could be inflammatory or early metastatic lesion. ABDOMEN: Increased inflammatory changes or surrounding the PEG tube insertion site. SUV value 3.49 PELVIS: No abnormal uptake OSSEOUS STRUCTURES: No abnormal uptake LOCALIZATION CT: No rib abnormality is identified on the right pleural margin appears increased radio tracer. Patient's PEG tube and tracheostomy site identified. COMPARISON: Uptake adjacent to the tracheostomy site is increased in intensity from comparison. Pleur al densities anterolateral right upper lobe are newly identified. IMPRESSION: 1. Increased uptake superior right lateral to the tracheostomy site suspicious for recurrence. 2. Developing right upper lateral pleural radiotracer metastasis should be considered.
== END | disposition home or self-care (01) ==
LOC: RADPETMAIN 12:34
PROVIDERS: ATTEND Internal Medicine Hematology & Oncology
DX: C78.2 Secondary malignant neoplasm of pleura (principal); Z93.0 Tracheostomy status; C76.0 Malignant neoplasm of head, face and neck
CPT/HCPCS: 78815; A9552

== ENCOUNTER 2020-02-18 12:58 | Emergency (ER) | payer BC, MEDICARE ==
[2020-02-18 13:07] VITALS: BP 139/88; PULSE 86; RESP 18; TEMP 98.4
[2020-02-18] MEDS ORDERED: LIDOCAINE URO-JET JELLY 2% 5 ML KIT URETHRAL ONE (13:24)
--- NOTE | 2020-02-18 13:32 | ED ---
Recheck HPI - General Chief Complaint: Recheck/Abnormal Lab/Rx Stated Complaint: Feeding tube has holes in it Time Seen by Provider: 02/18/20 13:20 Source: patient, RN notes reviewed, old records reviewed Mode of arrival: ambulatory Limitations: no limitations - History of Present Illness Initial Comments: This is a 64-year-old male DF for evaluation patient presents today for feeding tube failure. This pain to his Whole that secondary to wear and tear. Patient is requesting new feeding tube no other complaints related to his been and foremost the MD Complaint: other (Reevaluation regarding feeding tube replacement) -: hour(s) Symptoms Since Prior Visit: no new symptoms Context: planned re-check Associated Symptoms: none - Related Data Home Medications Medication Instructions Recorded Confirmed Cholecalciferol (Vitamin D3) 2,000 unit PO DAILY 01/07/19 11/27/19 [Vitamin D3] Folic Acid 1 mg PO DAILY 01/07/19 11/27/19 Losartan/Hydrochlorothiazide 0.5 tab PO DAILY 01/07/19 11/27/19 [Losartan-Hctz 100-25 mg Tab] Omeprazole 40 mg PO DAILY 01/07/19 11/27/19 Vit C/E/Zn/Coppr/Lutein/Zeaxan 1 tab PO BID 01/07/19 11/27/19 [Preservision Areds 2 Softgel] Amitriptyline HCl 25 mg PO HS 11/27/19 11/27/19 Celecoxib [CeleBREX] 200 mg PO HS 11/27/19 11/27/19 Ipratropium Carmen [Ipratropium 2 sprays EA NOSTRIL BID 11/27/19 11/27/19 Carmen 0.03%] Levothyroxine Sodium [Synthroid] 150 mcg PO DAILY 11/27/19 11/27/19 Allergies Allergy/AdvReac Type Severity Reaction Status Date / Time No Known Allergies Allergy Verified 02/18/20 13:06 Review of Systems ROS Statement: Those systems with pertinent positive or pertinent negative responses have been documented in the HPI. ROS Other: All systems not noted in ROS Statement are negative. Past Medical History Past Medical History: Cancer, COPD, GERD/Reflux, Hypertension, Rheumatoid Arthritis (RA) Additional Past Medical History / Comment(s): Laryngeal cancer with radiation about 6 yrs ago History of Any Multi-Drug Resistant Organisms: None Reported Additional Past Surgical History / Comment(s): sinus surgery, colonoscopy, bronchoscopy.largynx peg tube Past Anesthesia/Blood Transfusion Reactions: No Reported Reaction Past Psychological History: No Psychological Hx Reported Smoking Status: Never smoker Past Alcohol Use History: Occasional Past Drug Use History: None Reported - Past Family History Father Family Medical History: No Reported History Additional Family Medical History / Comment(s): Father lived to be almost 90 yrs old. Brother(s) Family Medical History: Myocardial Infarction ([place]) Mother Family Medical History: No Reported History Additional Family Medical History / Comment(s): Mother lived to be 94 yrs old. General Exam Limitations: no limitations General appearance: alert, in no apparent distress Head exam: Present: atraumatic, normocephalic, normal inspection Eye exam: Present: normal appearance, PERRL, EOMI. Absent: scleral icterus, conjunctival injection, periorbital swelling ENT exam: Present: normal exam, mucous membranes moist Neck exam: Present: normal inspection. Absent: tenderness, meningismus, lymphadenopathy Respiratory exam: Present: normal lung sounds bilaterally. Absent: respiratory distress, wheezes, rales, rhonchi, stridor Cardiovascular Exam: Present: regular rate, normal rhythm, normal heart sounds. Absent: systolic murmur, diastolic murmur, rubs, gallop, clicks GI/Abdominal exam: Present: soft, normal bowel sounds. Absent: distended, tenderness, guarding, rebound, rigid Extremities exam: Present: normal inspection, full ROM, normal capillary refill. Absent: tenderness, pedal edema, joint swelling, calf tenderness Back exam: Present: normal inspection Neurological exam: Present: alert, oriented X3, CN II-XII intact Psychiatric exam: Present: normal affect, normal mood Skin exam: Present: warm, dry, intact, normal color. Absent: rash Course Vital Signs 02/18/20 13:03 Temperature 98.4 F Pulse Rate 86 Respiratory 18 Rate Blood Pressure 139/88 O2 Sat by Pulse 97 Oximetry - Reevaluation(s) Reevaluation #1: Medical record is reviewed Patient symptoms are significantly improved, tube is replaced Patient informed and updated regarding results, questions answered Patient feels good for discharge home Medical Decision Making - Medical Decision Making 64 male with feeding tube malfunction, feed to recent place and patient can be discharged home Disposition Clinical Impression: Visit for feeding tube placement Disposition: HOME SELF-CARE Condition: Good Instructions (If sedation given, give patient instructions): How to Use and Care for Your PEG Tube (ED), PEG Tube Insertion (DC) Is patient prescribed a controlled substance at d/c from ED?: No Referrals: Marcos Chu MD [Primary Care Provider] - 1-2 days
== END 2020-02-18 13:43 | disposition home or self-care (01) ==
LOC: EC 12:58
DX: Z46.59 Encounter for fitting and adjustment of other gastrointestinal appliance and device (principal); K94.23 Gastrostomy malfunction; I10 Essential (primary) hypertension; K21.9 Gastro-esophageal reflux disease without esophagitis; M06.9 Rheumatoid arthritis, unspecified; J44.9 Chronic obstructive pulmonary disease, unspecified; Z79.899 Other long term (current) drug therapy; Z79.1 Long term (current) use of non-steroidal anti-inflammatories (NSAID); Z79.890 Hormone replacement therapy; Z85.21 Personal history of malignant neoplasm of larynx
CPT/HCPCS: 99283

== ENCOUNTER 2020-02-21 12:46 | Emergency (ER) | payer BC, MEDICARE ==
[2020-02-21] MEDS ORDERED: SODIUM CHLORIDE 0.9% 1,000 ML IV STA ×2 (12:50)
[2020-02-21 12:57] VITALS: TEMP 98
[2020-02-21 13:01] LABS: Glucose,Whole Blood 115 mg/dL (75-99)
--- NOTE | 2020-02-21 13:23 | XR ---
EXAMINATION TYPE: XR chest 2V DATE OF EXAM: 02/21/2020 COMPARISON: Prior chest x-ray 10/01/2008, PET/CT 01/17/2020 HISTORY: Syncope TECHNIQUE: Frontal and lateral views of the chest are obtained on 3 images. FINDINGS: In the right upper lobe at the level of the posterior right fifth rib there is a nodular de nsity present not seen on prior exam. Surgical clips are present at the level of the thoracic inlet. Apical pleural thickening is stable. There is no pleural effusion or pneumothorax seen. The cardiac silhouette size is within normal limits. The osseous structures are intact. IMPRESSION: Possible right upper lobe lung nodule, findings may correspond to abnormal pleural thick ening at this level, consider follow-up.
[2020-02-21 13:35] LABS: Basophils % (A) 1 %; Eosinophils # (A) 0.2 k/uL (0-0.7); Eosinophils % (A) 3 %; HCT 42.1 % (39.0-53.0); HGB 14.3 gm/dL (13.0-17.5); Lymphocytes # (A) 1.1 k/uL (1.0-4.8); Lymphocytes % (A) 17 %; MCHC 33.8 g/dL (31.0-37.0); MCV 94.5 fL (80.0-100.0); Mean Platelet Volume 8.3; Monocytes # (A) 0.6 k/uL (0-1.0); Monocytes % (A) 9 %; Neutrophils % (A) 67 %; Platelet Count 199 k/uL (150-450); RBC 4.46 m/uL (4.30-5.90); RDW 13.4 % (11.5-15.5); WBC 6.1 k/uL (3.8-10.6)
[2020-02-21 13:45] LABS: Partial Thromboplastin Time 24.1 sec (22.0-30.0); Prothrombin Time 10.4 sec (9.0-12.0)
[2020-02-21 13:53] LABS: ALT 14 U/L (4-49); AST 26 U/L (17-59); African American GFR (CKD) >90 (>60 ml/min/1.73 sqM); Albumin 4.5 g/dL (3.5-5.0); Alkaline Phosphatase 82 U/L (38-126); Anion Gap 13 mmol/L; Blood Urea Nitrogen 13 mg/dL (9-20); Calcium 9.2 mg/dL (8.4-10.2); Carbon Dioxide 24 mmol/L (22-30); Chloride 90 mmol/L (98-107); Creatine Kinase 74 U/L (55-170); Glucose 110 mg/dL (74-99); Magnesium 1.7 mg/dL (1.6-2.3); Non-African American GFR(CKD) >90 (>60 ml/min/1.73 sqM); Potassium 3.5 mmol/L (3.5-5.1); Sodium 127 mmol/L (137-145); Total Bilirubin 0.7 mg/dL (0.2-1.3); Total Protein 6.8 g/dL (6.3-8.2)
[2020-02-21 14:06] VITALS: RESP 18
--- NOTE | 2020-02-21 14:16 | ED ---
Dizziness HPI - General Chief Complaint: Syncope Stated Complaint: unresponsive Time Seen by Provider: 02/21/20 12:46 Source: patient, RN/MD, RN notes reviewed Mode of arrival: wheelchair Limitations: language barrier - History of Present Illness Initial Comments: This is a 64-year-old male with history of laryngeal cancer status post laryngectomy who was getting ready for a CAT scan today when he apparently briefly passed out. No pain is reported no trauma reported he woke up quickly after perhaps 10 seconds. He felt little lightheaded initially. He does admit he did not eat or drink today prior to the procedure. He denies any fevers chills nausea vomiting sweats no other symptoms at this time. A CODE BLUE was called on the patient and Dr. Freitas did respond immediately report was from her. No other findings reported MD Complaint: other - Related Data Home Medications Medication Instructions Recorded Confirmed Cholecalciferol (Vitamin D3) 2,000 unit PO DAILY 01/07/19 02/21/20 [Vitamin D3] Folic Acid 1 mg PO DAILY 01/07/19 02/21/20 Losartan/Hydrochlorothiazide 0.5 tab PO DAILY 01/07/19 02/21/20 [Losartan-Hctz 100-25 mg Tab] Omeprazole 40 mg PO DAILY 01/07/19 02/21/20 Vit C/E/Zn/Coppr/Lutein/Zeaxan 1 tab PO BID 01/07/19 02/21/20 [Preservision Areds 2 Softgel] Amitriptyline HCl 25 mg PO HS 11/27/19 02/21/20 Celecoxib [CeleBREX] 200 mg PO HS 11/27/19 02/21/20 Levothyroxine Sodium [Synthroid] 150 mcg PO DAILY 11/27/19 02/21/20 Allergies Allergy/AdvReac Type Severity Reaction Status Date / Time No Known Allergies Allergy Verified 02/21/20 13:25 Review of Systems ROS Statement: Those systems with pertinent positive or pertinent negative responses have been documented in the HPI. ROS Other: All systems not noted in ROS Statement are negative. Past Medical History Past Medical History: Cancer, COPD, GERD/Reflux, Hypertension, Rheumatoid Arthritis (RA) Additional Past Medical History / Comment(s): Laryngeal cancer with radiation about 6 yrs ago History of Any Multi-Drug Resistant Organisms: None Reported Additional Past Surgical History / Comment(s): sinus surgery, colonoscopy, bronchoscopy.largynx peg tube, tracheostomy Past Anesthesia/Blood Transfusion Reactions: No Reported Reaction Past Psychological History: No Psychological Hx Reported Smoking Status: Never smoker Past Alcohol Use History: Occasional Past Drug Use History: None Reported - Past Family History Father Family Medical History: No Reported History Additional Family Medical History / Comment(s): Father lived to be almost 90 yrs old. Brother(s) Family Medical History: Myocardial Infarction ([place]) Mother Family Medical History: No Reported History Additional Family Medical History / Comment(s): Mother lived to be 94 yrs old. General Exam - General Exam Comments Initial Comments: This a well-developed asthenic appearing male who is awake alert oriented 3 he is nonverbal due to laryngectomy. Limitations: language barrier General appearance: alert, in no apparent distress Head exam: Present: atraumatic, normocephalic, normal inspection Eye exam: Present: normal appearance, PERRL, EOMI. Absent: scleral icterus, conjunctival injection, periorbital swelling ENT exam: Present: mucous membranes dry Neck exam: Present: normal inspection. Absent: tenderness, meningismus, lymphadenopathy Respiratory exam: Present: normal lung sounds bilaterally. Absent: respiratory distress, wheezes, rales, rhonchi, stridor Cardiovascular Exam: Present: regular rate, normal rhythm, normal heart sounds. Absent: systolic murmur, diastolic murmur, rubs, gallop, clicks GI/Abdominal exam: Present: soft, normal bowel sounds. Absent: distended, tenderness, guarding, rebound, rigid Extremities exam: Present: normal inspection, full ROM, normal capillary refill. Absent: tenderness, pedal edema, joint swelling, calf tenderness Back exam: Present: normal inspection Neurological exam: Present: alert, oriented X3, CN II-XII intact Psychiatric exam: Present: normal affect, normal mood Skin exam: Present: warm, dry, intact, normal color. Absent: rash Course Vital Signs 02/21/20 02/21/20 12:49 14:04 Temperature 98 F Pulse Rate 72 71 Respiratory 16 18 Rate Blood Pressure 123/87 122/87 O2 Sat by Pulse 97 99 Oximetry EKG Findings - EKG Results: EKG: interpreted by PINA FELIX (Sinus rhythm a 69. Interval 174 QRS 94 QT since QTC 434/[address]-T wave changes) Medical Decision Making - Medical Decision Making I did reevaluate patient on multiple occasions he is showing much improved after IV fluids. The presentation is consistent with a vasovagal episode. He will be discharged CAT scan results are pending. He'll follow-up as planned - Lab Data Result diagrams: 02/21/20 13:01 02/21/20 13:01 Lab Results 02/21/20 02/21/20 02/21/20 Range/Units 12:51 13:01 13:01 WBC 6.1 (3.8-10.6) k/uL RBC 4.46 (4.30-5.90) m/uL Hgb 14.3 (13.0-17.5) gm/dL Hct 42.1 (39.0-53.0) % MCV 94.5 (80.0-100.0) fL MCH 32.0 (25.0-35.0) pg MCHC 33.8 (31.0-37.0) g/dL RDW 13.4 (11.5-15.5) % Plt Count 199 (150-450) k/uL Neutrophils % 67 % Lymphocytes % 17 % Monocytes % 9 % Eosinophils % 3 % Basophils % 1 % Neutrophils # 4.0 (1.3-7.7) k/uL Lymphocytes # 1.1 (1.0-4.8) k/uL Monocytes # 0.6 (0-1.0) k/uL Eosinophils # 0.2 (0-0.7) k/uL Basophils # 0.0 (0-0.2) k/uL PT 10.4 (9.0-12.0) sec INR 1.0 (<1.2) APTT 24.1 (22.0-30.0) sec Sodium (137-145) mmol/L Potassium (3.5-5.1) mmol/L Chloride (98-107) mmol/L Carbon Dioxide (22-30) mmol/L Anion Gap mmol/L BUN (9-20) mg/dL Creatinine (0.66-1.25) mg/dL Est GFR (CKD-EPI)AfAm (>60 ml/min/1.73 sqM) Est GFR (CKD-EPI)NonAf (>60 ml/min/1.73 sqM) Glucose (74-99) mg/dL POC Glucose (mg/dL) 115 H (75-99) mg/dL POC Glu Ski Binding Fitter And Repairer ID Christian Crowe Calcium (8.4-10.2) mg/dL Magnesium (1.6-2.3) mg/dL Total Bilirubin (0.2-1.3) mg/dL AST (17-59) U/L ALT (4-49) U/L Alkaline Phosphatase (38-126) U/L Creatine Kinase (55-170) U/L Troponin I (0.000-0.034) ng/mL Total Protein (6.3-8.2) g/dL Albumin (3.5-5.0) g/dL 02/21/20 02/21/20 Range/Units 13:01 13:01 WBC (3.8-10.6) k/uL RBC (4.30-5.90) m/uL Hgb (13.0-17.5) gm/dL Hct (39.0-53.0) % MCV (80.0-100.0) fL MCH (25.0-35.0) pg MCHC (31.0-37.0) g/dL RDW (11.5-15.5) % Plt Count (150-450) k/uL Neutrophils % % Lymphocytes % % Monocytes % % Eosinophils % % Basophils % % Neutrophils # (1.3-7.7) k/uL Lymphocytes # (1.0-4.8) k/uL Monocytes # (0-1.0) k/uL Eosinophils # (0-0.7) k/uL Basophils # (0-0.2) k/uL PT (9.0-12.0) sec INR (<1.2) APTT (22.0-30.0) sec Sodium 127 L (137-145) mmol/L Potassium 3.5 (3.5-5.1) mmol/L Chloride 90 L (98-107) mmol/L Carbon Dioxide 24 (22-30) mmol/L Anion Gap 13 mmol/L BUN 13 (9-20) mg/dL Creatinine 0.76 (0.66-1.25) mg/dL Est GFR (CKD-EPI)AfAm >90 (>60 ml/min/1.73 sqM) Est GFR (CKD-EPI)NonAf >90 (>60 ml/min/1.73 sqM) Glucose 110 H (74-99) mg/dL POC Glucose (mg/dL) (75-99) mg/dL POC Glu Ski Binding Fitter And Repairer ID Calcium 9.2 (8.4-10.2) mg/dL Magnesium 1.7 (1.6-2.3) mg/dL Total Bilirubin 0.7 (0.2-1.3) mg/dL AST 26 (17-59) U/L ALT 14 (4-49) U/L Alkaline Phosphatase 82 (38-126) U/L Creatine Kinase 74 (55-170) U/L Troponin I <0.012 (0.000-0.034) ng/mL Total Protein 6.8 (6.3-8.2) g/dL Albumin 4.5 (3.5-5.0) g/dL - Radiology Data Radiology results: report reviewed (X-ray imaging shows no definite acute findings or is question will nodule right upper lobe. He will follow-up with his doctor for this), image reviewed Disposition Clinical Impression: Vasovagal syncope, Dehydration Disposition: HOME SELF-CARE Condition: Good Instructions (If sedation given, give patient instructions): Syncope (ED), Dehydration (ED) Is patient prescribed a controlled substance at d/c from ED?: No Referrals: Marcos Chu MD [Primary Care Provider] - 1-2 days
[2020-02-21 15:26] VITALS: BP 159/98; PULSE 91
[2020-02-21 15:36] LABS: Appearance,Urine Clear (Clear); Bilirubin,Urine Negative (Negative); Blood,Urine Negative (Negative); Color,Urine Colorless; Glucose,Urine (UA) Negative (Negative); Ketones,Urine Negative (Negative); Leukocyte Esterase,Urine Negative (Negative); Nitrite,Urine Negative (Negative); PH, Urine 7.5 (5.0-8.0); Protein,Urine Negative (Negative); Specific Gravity,Urine 1.011 (1.001-1.035); Urobilinogen,Urine <2.0 mg/dL (<2.0)
== END 2020-02-21 15:30 | disposition home or self-care (01) ==
LOC: EC 12:46
DX: E86.0 Dehydration (principal); K21.9 Gastro-esophageal reflux disease without esophagitis; I10 Essential (primary) hypertension; Z79.899 Other long term (current) drug therapy; Z85.21 Personal history of malignant neoplasm of larynx; Z92.3 Personal history of irradiation; M06.9 Rheumatoid arthritis, unspecified; Z79.890 Hormone replacement therapy
CPT/HCPCS: 36415; 71046; 80053; 81003; 82550; 83735; 84484; 85025; 85610; 85730; 93005; 96360; 96361; 99284; 99285

== ENCOUNTER → 2020-02-21 | Outpatient (CLI) | payer BC, MEDICARE ==
--- NOTE | 2020-02-25 08:31 | CT ---
EXAMINATION TYPE: CT soft tissue neck w con DATE OF EXAM: 02/21/2020 COMPARISON: 12/04/2018 HISTORY: Malignant neoplasm of supraglottis. CT DLP: 231.6 mGycm CONTRAST: Patient injected with 100 mL of Isovue 300. TECHNIQUE: Axial images at 3 mm thick sections. Reconstructed images in the coronal plane and sagitt al plane are reviewed. Images were obtained 02/21/2020 and presented 02/25/2024 final interpretation, pre vious dictation cannot be located. FINDINGS: Limited CT sections are obtained the lung apices. Emphysematous changes are evident within the lung apices. There is an area of increased density within the anterior right upper lobe measurin g 0.4 cm with stranding extending to the pleural margin on lung windows. Series 201 image 16. This is new. Some posterior right apical thickening is present with calcification. Some milder thickening may be a long the posterior left apex. This was present previously. Tracheostomy is evident. CT neck: The torus tubarius and fossa of Rosenmuller are normal. Personnel Coordinator spaces are normal. Para nasal sinuses and mastoid air cells are clear. Parotid glands appear normal and symmetrical. Submandibular glands, are normal. Parapharyngeal spac es are normal. No suspicious adenopathy is evident. Beam hardening artifact at the level the mandibl e is evident. Surgical clips are present within the bilateral neck. There is diffuse soft tissue swel ling slightly greater on the left than the right. Hypopharynx ends with a connection to the esophagus. The laryngeal region, vocal cords, epiglottis ar e absent. Fat is in the interposing space. Osseous structures are normal. IMPRESSIONS: 1. Postsurgical laryngectomy and neck dissection. No recurrent masses are identified. 2. No suspicious local lymphadenopathy. 3. New 0.4 cm nodule right apex. Workup for metastatic disease is recommended.
== END | disposition home or self-care (01) ==
LOC: RADCTMAIN 12:11
PROVIDERS: ATTEND Otolaryngology
DX: R22.1 Localized swelling, mass and lump, neck (principal); C32.1 Malignant neoplasm of supraglottis; Z93.0 Tracheostomy status; Z98.890 Other specified postprocedural states; Z92.21 Personal history of antineoplastic chemotherapy
CPT/HCPCS: 70491; Q9967

== ENCOUNTER 2020-09-27 08:25 | Emergency (ER) | payer MEDICARE ==
[2020-09-27 08:35] VITALS: TEMP 97.5
[2020-09-27] MEDS ORDERED: SODIUM CHLORIDE 0.9% 1,000 ML IV STA (08:43)
[2020-09-27] MEDS ORDERED: METOCLOPRAMIDE 5 MG/ML 2 ML VIAL IVP STA (08:46)
[2020-09-27] MEDS ORDERED: MECLIZINE 12.5 MG TAB PO STA (08:46)
--- NOTE | 2020-09-27 08:51 | ED ---
General Adult HPI - General Chief complaint: Dizziness Stated complaint: Dizziness, Vertigo Time Seen by Provider: 09/27/20 08:27 Source: EMS Mode of arrival: EMS Limitations: language barrier - History of Present Illness Initial comments: Dictation was produced using [employer] dictation software. please excuse any grammatical, word or spelling errors. This patient was cared for during a federal and state declared state of emergency secondary to Covid 19 Chief Complaint: 65-year-old male with past medical history of oropharyngeal cancer. He has tracheostomy and feeding tube presents to emergency department for vertiginous symptoms. History of Present Illness: 65-year-old male presents to the emergency department from home via EMS. Patient is brought to the emergency department for vertiginous symptoms. Patient communicates via writing. States that he has been having vertiginous symptoms for the last couple days. He states the room feels like it's tilting whenever he stands up. He denies any other symptoms with certain head movements. He states that last week he had his amitriptyline medications increased by his doctor. Patient denies any other symptoms at this time. No fever, chills or night sweats. Denies any pain complaints. States that he's been eating well. At rest he denies any symptoms. The ROS documented in this emergency department record has been reviewed and confirmed by me. Those systems with pertinent positive or negative responses have been documented in the HPI. All other systems are other negative and/or noncontributory. PHYSICAL EXAM: General Impression: Alert and oriented x3, not in acute distress HEENT: Normocephalic atraumatic, extra-ocular movements intact, pupils equal and reactive to light bilaterally, mucous membranes moist. Cardiovascular: Heart regular rate and rhythm Chest: Able to complete full sentences, no retractions, no tachypnea Abdomen: abdomen soft, non-tender, non-distended, no organomegaly Musculoskeletal: Pulses present and equal in all extremities, no peripheral edema Motor: no focal deficits noted Neurological: CN II-XII grossly intact, no focal motor or sensory deficits noted, no nystagmus Skin: Intact with no visualized rashes Psych: Normal affect and mood ED course: 65-year-old male presents to the emergency department for clinical presentation consistent with positional vertigo. Vital signs upon arrival are within acceptable limits. Laboratory evaluation obtained. CBC unremarkable. Metabolic panel shows sodium of 124, rest of metabolic panel is within acceptable limits. Orthostatic vital signs were performed. He did have a 20 mg drop from standing to supine. Disposition's options were discussed with patient and he really wants to discharge. Patient given intravenous fluids repeat orthostatic vital signs were normal. Patient reevaluated and feels well. Patient prescription for Antivert. He is advised follow up with his primary care physician for continued outpatient management of hyponatremia. He is told to add some salt to his diet. He states he does have soft Home. EKG interpretation: Ventricular rate of 85, normal sinus rhythm,. Interval 176, QRS 100, QTC 475. No NE prolongation, no QTC prolongation, no ST or T-wave changes noted. EKG compared to 02/21/2020 showing no changes. Overall, this EKG is unremarkable - Related Data Home Medications Medication Instructions Recorded Confirmed Cholecalciferol (Vitamin D3) 2,000 unit PO DAILY 01/07/19 02/21/20 [Vitamin D3] Folic Acid 1 mg PO DAILY 01/07/19 02/21/20 Losartan/Hydrochlorothiazide 0.5 tab PO DAILY 01/07/19 02/21/20 [Losartan-Hctz 100-25 mg Tab] Omeprazole 40 mg PO DAILY 01/07/19 02/21/20 Vit C/E/Zn/Coppr/Lutein/Zeaxan 1 tab PO BID 01/07/19 02/21/20 [Preservision Areds 2 Softgel] Amitriptyline HCl 25 mg PO HS 11/27/19 02/21/20 Celecoxib [CeleBREX] 200 mg PO HS 11/27/19 02/21/20 Levothyroxine Sodium [Synthroid] 150 mcg PO DAILY 11/27/19 02/21/20 Previous Rx's Medication Instructions Recorded Meclizine [Antivert] 25 mg PO TID PRN #15 tab 09/27/20 Allergies Allergy/AdvReac Type Severity Reaction Status Date / Time No Known Allergies Allergy Verified 02/21/20 13:25 Review of Systems ROS Statement: Those systems with pertinent positive or pertinent negative responses have been documented in the HPI. ROS Other: All systems not noted in ROS Statement are negative. Past Medical History Past Medical History: Cancer, COPD, GERD/Reflux, Hypertension, Rheumatoid Arthritis (RA) Additional Past Medical History / Comment(s): Laryngeal cancer with radiation about 6 yrs ago History of Any Multi-Drug Resistant Organisms: None Reported Additional Past Surgical History / Comment(s): sinus surgery, colonoscopy, bronchoscopy.largynx peg tube, trach Past Anesthesia/Blood Transfusion Reactions: No Reported Reaction Past Psychological History: No Psychological Hx Reported Smoking Status: Never smoker Past Alcohol Use History: Occasional Past Drug Use History: None Reported - Past Family History Father Family Medical History: No Reported History Additional Family Medical History / Comment(s): Father lived to be almost 90 yrs old. Brother(s) Family Medical History: Myocardial Infarction ([place]) Mother Family Medical History: No Reported History Additional Family Medical History / Comment(s): Mother lived to be 94 yrs old. General Exam Limitations: language barrier Course Vital Signs 09/27/20 09/27/20 09/27/20 08:28 09:35 10:00 Temperature 97.5 F L Pulse Rate 67 Pulse Rate [ Right Sitting Radial] Pulse Rate [ Right Standing Radial] Pulse Rate [ Right Supine Radial] Respiratory 16 18 18 Rate Blood Pressure 123/83 Blood Pressure [Right Radial Artery Sitting] Blood Pressure [Right Radial Artery Standing ] Blood Pressure [Right Radial Artery Supine] O2 Sat by Pulse 97 98 Oximetry 09/27/20 09/27/20 09/27/20 11:00 12:00 12:17 Temperature Pulse Rate 75 75 Pulse Rate [ 81 Right Sitting Radial] Pulse Rate [ 84 Right Standing Radial] Pulse Rate [ 76 Right Supine Radial] Respiratory 18 18 18 Rate Blood Pressure 129/92 101/86 Blood Pressure 115/94 [Right Radial Artery Sitting] Blood Pressure 101/86 [Right Radial Artery Standing ] Blood Pressure 122/90 [Right Radial Artery Supine] O2 Sat by Pulse 98 98 98 Oximetry 09/27/20 09/27/20 13:00 13:14 Temperature Pulse Rate 85 Pulse Rate [ 84 Right Sitting Radial] Pulse Rate [ 85 Right Standing Radial] Pulse Rate [ 77 Right Supine Radial] Respiratory 18 18 Rate Blood Pressure 129/98 Blood Pressure 128/96 [Right Radial Artery Sitting] Blood Pressure 129/98 [Right Radial Artery Standing ] Blood Pressure 132/92 [Right Radial Artery Supine] O2 Sat by Pulse 98 98 Oximetry Medical Decision Making - Lab Data Result diagrams: 09/27/20 10:54 09/27/20 10:54 Lab Results 04/11/21 04/11/21 Range/Units 10:54 10:54 WBC 4.1 (3.8-10.6) k/uL RBC 4.76 (4.30-5.90) m/uL Hgb 15.7 (13.0-17.5) gm/dL Hct 43.3 (39.0-53.0) % MCV 90.9 (80.0-100.0) fL MCH 33.0 (25.0-35.0) pg MCHC 36.3 (31.0-37.0) g/dL RDW 13.3 (11.5-15.5) % Plt Count 212 (150-450) k/uL MPV 7.8 Neutrophils % 82 % Lymphocytes % 7 % Monocytes % 6 % Eosinophils % 3 % Basophils % 1 % Neutrophils # 3.4 (1.3-7.7) k/uL Lymphocytes # 0.3 L (1.0-4.8) k/uL Monocytes # 0.2 (0-1.0) k/uL Eosinophils # 0.1 (0-0.7) k/uL Basophils # 0.0 (0-0.2) k/uL Sodium 124 L (137-145) mmol/L Potassium 4.9 (3.5-5.1) mmol/L Chloride 85 L (98-107) mmol/L Carbon Dioxide 33 H (22-30) mmol/L Anion Gap 6 mmol/L BUN 14 (9-20) mg/dL Creatinine 0.86 (0.66-1.25) mg/dL Est GFR (CKD-EPI)AfAm >90 (>60 ml/min/1.73 sqM) Est GFR (CKD-EPI)NonAf >90 (>60 ml/min/1.73 sqM) Glucose 104 H (74-99) mg/dL Calcium 9.5 (8.4-10.2) mg/dL Magnesium 2.2 (1.6-2.3) mg/dL Disposition Clinical Impression: Hyponatremia, Vertigo Disposition: HOME SELF-CARE Condition: Good Instructions (If sedation given, give patient instructions): Hyponatremia (ED) Prescriptions: Meclizine [Antivert] 25 mg PO TID PRN #15 tab PRN Reason: dizziness Is patient prescribed a controlled substance at d/c from ED?: No Referrals: Marcos Chu MD [Primary Care Provider] - 1-2 days Time of Disposition: 13:25
[2020-09-27 11:07] LABS: Basophils % (A) 1 %; Eosinophils # (A) 0.1 k/uL (0-0.7); Eosinophils % (A) 3 %; HCT 43.3 % (39.0-53.0); HGB 15.7 gm/dL (13.0-17.5); Lymphocytes # (A) 0.3 k/uL (1.0-4.8); Lymphocytes % (A) 7 %; MCHC 36.3 g/dL (31.0-37.0); MCV 90.9 fL (80.0-100.0); Mean Platelet Volume 7.8; Monocytes # (A) 0.2 k/uL (0-1.0); Monocytes % (A) 6 %; Neutrophils # (A) 3.4 k/uL (1.3-7.7); Neutrophils % (A) 82 %; Platelet Count 212 k/uL (150-450); RBC 4.76 m/uL (4.30-5.90); RDW 13.3 % (11.5-15.5); WBC 4.1 k/uL (3.8-10.6)
[2020-09-27 11:16] LABS: African American GFR (CKD) >90 (>60 ml/min/1.73 sqM); Anion Gap 6 mmol/L; Blood Urea Nitrogen 14 mg/dL (9-20); Calcium 9.5 mg/dL (8.4-10.2); Carbon Dioxide 33 mmol/L (22-30); Chloride 85 mmol/L (98-107); Non-African American GFR(CKD) >90 (>60 ml/min/1.73 sqM); Sodium 124 mmol/L (137-145)
[2020-09-27 11:20] LABS: Glucose 104 mg/dL (74-99); Magnesium 2.2 mg/dL (1.6-2.3); Potassium 4.9 mmol/L (3.5-5.1)
[2020-09-27 12:20] VITALS: RESP 18
[2020-09-27 13:16] VITALS: BP 129/98; PULSE 85
== END 2020-09-27 13:52 | disposition home or self-care (01) ==
LOC: EC 08:25
DX: E87.1 Hypo-osmolality and hyponatremia (principal); R42 Dizziness and giddiness; I10 Essential (primary) hypertension; J44.9 Chronic obstructive pulmonary disease, unspecified; K21.9 Gastro-esophageal reflux disease without esophagitis; Z85.818 Personal history of malignant neoplasm of other sites of lip, oral cavity, and pharynx
CPT/HCPCS: 36415; 93005; 80048; 83735; 85025; 99284; 96374; 96371; J2765; 96361

== ENCOUNTER 2020-10-02 08:22 | Emergency (ER) | payer MEDICARE ==
[2020-10-02 08:31] VITALS: BP 115/81; PULSE 113; RESP 18; TEMP 97.6
--- NOTE | 2020-10-02 10:45 | ED ---
General Adult HPI - General Chief complaint: Recheck/Abnormal Lab/Rx Stated complaint: Peg Tube Issue Time Seen by Provider: 10/02/20 08:34 Source: patient Mode of arrival: ambulatory Limitations: language barrier - History of Present Illness Initial comments: 65-year-old male patient presents to the emergency department today for evaluation of leaking PEG tube. Patient has history of laryngeal cancer status post radiation with chronic PEG tube. States this morning the tube cracked and has been leaking. Denies any pain around the insertion site. It has not become displaced. Denies any fever or chills. Denies any other concerns. - Related Data Home Medications Medication Instructions Recorded Confirmed Cholecalciferol (Vitamin D3) 2,000 unit PO DAILY 01/07/19 02/21/20 [Vitamin D3] Folic Acid 1 mg PO DAILY 01/07/19 02/21/20 Losartan/Hydrochlorothiazide 0.5 tab PO DAILY 01/07/19 02/21/20 [Losartan-Hctz 100-25 mg Tab] Omeprazole 40 mg PO DAILY 01/07/19 02/21/20 Vit C/E/Zn/Coppr/Lutein/Zeaxan 1 tab PO BID 01/07/19 02/21/20 [Preservision Areds 2 Softgel] Amitriptyline HCl 25 mg PO HS 11/27/19 02/21/20 Celecoxib [CeleBREX] 200 mg PO HS 11/27/19 02/21/20 Levothyroxine Sodium [Synthroid] 150 mcg PO DAILY 11/27/19 02/21/20 Previous Rx's Medication Instructions Recorded Meclizine [Antivert] 25 mg PO TID PRN #15 tab 09/27/20 Allergies Allergy/AdvReac Type Severity Reaction Status Date / Time No Known Allergies Allergy Verified 10/02/20 08:31 Review of Systems ROS Statement: Those systems with pertinent positive or pertinent negative responses have been documented in the HPI. ROS Other: All systems not noted in ROS Statement are negative. Past Medical History Past Medical History: Cancer, COPD, GERD/Reflux, Hypertension, Rheumatoid Arthritis ([place]) Additional Past Medical History / Comment(s): Laryngeal cancer with radiation about 6 yrs ago History of Any Multi-Drug Resistant Organisms: None Reported Additional Past Surgical History / Comment(s): sinus surgery, colonoscopy, bronchoscopy.largynx peg tube, trach Past Anesthesia/Blood Transfusion Reactions: No Reported Reaction Past Psychological History: No Psychological Hx Reported Smoking Status: Never smoker Past Alcohol Use History: Occasional Past Drug Use History: None Reported - Past Family History Father Family Medical History: No Reported History Additional Family Medical History / Comment(s): Father lived to be almost 90 yrs old. Brother(s) Family Medical History: Myocardial Infarction ([place]) Mother Family Medical History: No Reported History Additional Family Medical History / Comment(s): Mother lived to be 94 yrs old. General Exam Limitations: language barrier General appearance: alert, in no apparent distress, other (Physical well- developed, well-nourished adult male patient in no acute distress. Vital signs upon presentation are temperature 97.6F, pulse 113, respirations 18, blood pressure 115/81, pulse ox 97% on room air.) Respiratory exam: Present: normal lung sounds bilaterally. Absent: respiratory distress, wheezes, rales, rhonchi, stridor Cardiovascular Exam: Present: regular rate, normal rhythm, normal heart sounds. Absent: systolic murmur, diastolic murmur, rubs, gallop, clicks GI/Abdominal exam: Present: soft, normal bowel sounds, other (Mid-abdomen PEG tube.). Absent: distended, tenderness, guarding, rebound, rigid Neurological exam: Present: alert, oriented X3, CN II-XII intact Psychiatric exam: Present: normal affect, normal mood Skin exam: Present: warm, dry, intact, normal color. Absent: rash Course Vital Signs 10/02/20 08:24 Temperature 97.6 F Pulse Rate 113 H Respiratory 18 Rate Blood Pressure 115/81 O2 Sat by Pulse 97 Oximetry Medical Decision Making - Medical Decision Making 65 year-old male patient presented to the emergency department today for replacement of his cracked of leaking PEG tube. Physical examination did reveal large hole at the end of the PEG tube. There is no tenderness around the insertion site. She has a 20-Guine[place] PEG tube placed at this time. Unfortunately PEG tube was on back order and we only have a 16-Guinean in house. I discussed options with him I offered to place a 20-[place]ine[place] Matson catheter to maintain the stoma size as a temporary solution. Patient was reluctant to do this and did not want a smaller tube placed either. I did contact his oncologist office per his request unfortunately they're unable to give him an appointment today but recommend he presents to the emergency Department Jenny[facility] Morgan for them to place the appropriate size tube. I did discuss this with the patient he states he will drive himself to the emergency department. Return parameters discussed in detail. He verbalizes understanding and agrees with this plan. My attending is Dr. Mcpherson. Disposition Clinical Impression: Leaking PEG tube Disposition: HOME SELF-CARE Condition: Good Instructions (If sedation given, give patient instructions): Percutaneous Endoscopic Gastrostomy (ED) Additional Instructions: Follow up with your physician for further evaluation. Have PEG tube placed as soon as possible. Is patient prescribed a controlled substance at d/c from ED?: No Referrals: Marcos Chu MD [Primary Care Provider] - 1-2 days Time of Disposition: 10:45
== END 2020-10-02 11:15 | disposition home or self-care (01) ==
LOC: EC 08:22
DX: K94.23 Gastrostomy malfunction (principal); K21.9 Gastro-esophageal reflux disease without esophagitis; I10 Essential (primary) hypertension; J44.9 Chronic obstructive pulmonary disease, unspecified; Z85.21 Personal history of malignant neoplasm of larynx
CPT/HCPCS: 99283

== ENCOUNTER 2021-01-19 22:25 | Emergency (ER) | payer MEDICARE, BC ==
[2021-01-19 22:57] VITALS: BP 117/80; PULSE 82; RESP 16; TEMP 98
[2021-01-19] MEDS ORDERED: SODIUM CHLORIDE 0.9% 1,000 ML IV STA (22:57)
[2021-01-19] MEDS ORDERED: MORPHINE SULFATE 4 MG/ML SYRINGE IVP STA (22:58)
[2021-01-19 23:48] LABS: ALT 13 U/L (4-49); AST 34 U/L (17-59); African American GFR (CKD) >90 (>60 ml/min/1.73 sqM); Albumin 3.7 g/dL (3.5-5.0); Alkaline Phosphatase 85 U/L (38-126); Anion Gap 9 mmol/L; Blood Urea Nitrogen 18 mg/dL (9-20); Calcium 9.8 mg/dL (8.4-10.2); Carbon Dioxide 26 mmol/L (22-30); Chloride 93 mmol/L (98-107); Glucose 104 mg/dL (74-99); Non-African American GFR(CKD) >90 (>60 ml/min/1.73 sqM); Potassium 3.6 mmol/L (3.5-5.1); Sodium 128 mmol/L (137-145); Total Bilirubin 0.2 mg/dL (0.2-1.3); Total Protein 6.4 g/dL (6.3-8.2)
--- NOTE | 2021-01-19 23:50 | XR ---
EXAMINATION TYPE: XR chest 2V DATE OF EXAM: 01/19/2021 COMPARISON: 02/21/2020 HISTORY: Weakness TECHNIQUE: 2 views FINDINGS: There is widening of the mediastinum on the left side consistent with adenopathy. There is obscured aortic arch. There are surgical clips at the base of the neck on the left side. There is pleural thickening on the right lateral chest wall. This measures up to almost 3 cm in thick ness and there is destructive changes of the right third and fourth and fifth ribs. There is blunting left costophrenic angle. There is no heart failure. There are no hilar masses. IMPRESSION: Compared to old exam there is development of pleural-based mass on the right lateral ches t wall with multiple rib destruction consistent with tumor. There is a new left pleural effusion. The re is new left side mediastinal adenopathy.
[2021-01-19 23:53] LABS: Basophils # (A) 0.1 k/uL (0-0.2); Basophils % (A) 1 %; Eosinophils # (A) 0.1 k/uL (0-0.7); Eosinophils % (A) 1 %; HCT 42.3 % (39.0-53.0); HGB 14.2 gm/dL (13.0-17.5); Lymphocytes # (A) 0.5 k/uL (1.0-4.8); Lymphocytes % (A) 7 %; MCH 31.5 pg (25.0-35.0); MCHC 33.7 g/dL (31.0-37.0); MCV 93.4 fL (80.0-100.0); Mean Platelet Volume 8.3; Monocytes # (A) 0.5 k/uL (0-1.0); Monocytes % (A) 6 %; Neutrophils # (A) 6.6 k/uL (1.3-7.7); Neutrophils % (A) 83 %; Platelet Count 276 k/uL (150-450); RBC 4.53 m/uL (4.30-5.90); RDW 13.3 % (11.5-15.5); WBC 7.9 k/uL (3.8-10.6)
[2021-01-19 23:58] LABS: Partial Thromboplastin Time 23.1 sec (22.0-30.0); Prothrombin Time 10.5 sec (9.0-12.0)
--- NOTE | 2021-01-20 03:00 | ED ---
General Adult HPI - General Chief complaint: Weakness Stated complaint: Dizziness Time Seen by Provider: 01/19/21 22:40 Source: family, RN notes reviewed Mode of arrival: EMS Limitations: language barrier - History of Present Illness Initial comments: 65-year-old male with a past medical history of laryngeal cancer with radiation 6 years ago, hypertension, COPD, GERD presents to the emergency room for a chief complaint of weakness. Patient states he has felt weak for the past couple weeks. He states that he thinks this is secondary to generalized pain. His back and just all over his body. Patient is not feeling well because of this. Patient denies any fevers. Denies cough or dysuria. Patient denies room spinning or passing out.Patient has no other complaints at this time including shortness of breath, chest pain, abdominal pain, nausea or vomiting, headache, or visual changes. - Related Data Home Medications Medication Instructions Recorded Confirmed Cholecalciferol (Vitamin D3) 2,000 unit PO DAILY 01/07/19 02/21/20 [Vitamin D3] Folic Acid 1 mg PO DAILY 01/07/19 02/21/20 Losartan/Hydrochlorothiazide 0.5 tab PO DAILY 01/07/19 02/21/20 [Losartan-Hctz 100-25 mg Tab] Omeprazole 40 mg PO DAILY 01/07/19 02/21/20 Vit C/E/Zn/Coppr/Lutein/Zeaxan 1 tab PO BID 01/07/19 02/21/20 [Preservision Areds 2 Softgel] Amitriptyline HCl 25 mg PO HS 11/27/19 02/21/20 Celecoxib [CeleBREX] 200 mg PO HS 11/27/19 02/21/20 Levothyroxine Sodium [Synthroid] 150 mcg PO DAILY 11/27/19 02/21/20 Previous Rx's Medication Instructions Recorded Meclizine [Antivert] 25 mg PO TID PRN #15 tab 09/27/20 HYDROcodone/APAP 5-325MG [[place] 1 tab PO Q6HR PRN #12 tab 01/20/21 5-325] Allergies Allergy/AdvReac Type Severity Reaction Status Date / Time No Known Allergies Allergy Verified 10/02/20 08:31 Review of Systems ROS Statement: Those systems with pertinent positive or pertinent negative responses have been documented in the HPI. ROS Other: All systems not noted in ROS Statement are negative. Past Medical History Past Medical History: Cancer, COPD, GERD/Reflux, Hypertension, Rheumatoid Arthritis (RA) Additional Past Medical History / Comment(s): Laryngeal cancer with radiation about 6 yrs ago History of Any Multi-Drug Resistant Organisms: None Reported Additional Past Surgical History / Comment(s): sinus surgery, colonoscopy, br onchoscopy.largynx peg tube, trach Past Anesthesia/Blood Transfusion Reactions: No Reported Reaction Past Psychological History: No Psychological Hx Reported Smoking Status: Never smoker Past Alcohol Use History: Occasional Past Drug Use History: None Reported - Past Family History Father Family Medical History: No Reported History Additional Family Medical History / Comment(s): Father lived to be almost 90 yrs old. Brother(s) Family Medical History: Myocardial Infarction (MT) Mother Family Medical History: No Reported History Additional Family Medical History / Comment(s): Mother lived to be 94 yrs old. General Exam Limitations: language barrier General appearance: alert, in no apparent distress Head exam: Present: atraumatic, normocephalic, normal inspection Eye exam: Present: normal appearance, PERRL, EOMI. Absent: scleral icterus, conjunctival injection, periorbital swelling ENT exam: Present: normal exam, mucous membranes moist Neck exam: Present: normal inspection, full ROM. Absent: tenderness, meningismus, lymphadenopathy Respiratory exam: Present: normal lung sounds bilaterally. Absent: respiratory distress, wheezes, rales, rhonchi, stridor Cardiovascular Exam: Present: regular rate, normal rhythm, normal heart sounds. Absent: systolic murmur, diastolic murmur, rubs, gallop, clicks GI/Abdominal exam: Present: soft, normal bowel sounds. Absent: distended, tenderness, guarding, rebound, rigid Neurological exam: Present: alert Course Vital Signs 01/19/21 22:51 Temperature 98.0 F Pulse Rate 82 Respiratory 16 Rate Blood Pressure 117/80 O2 Sat by Pulse 98 Oximetry Medical Decision Making - Medical Decision Making Vitals are stable. CBC unremarkable. CMP reveals mild hyponatremia which is chronic in nature. Chest x-ray shows compared to old exam there is a development of pleural base mass on the right lateral chest wall with multiple rib distraction consistent with tumor. There is new left pleural effusion. There is new left mediastinal adenopathy.I did discuss these findings in detail with patient. Patient reports he just had a CAT scan and is going to go over the results on Monday with his oncologist. Patient does not want to be admitted to the hospital at this time for further evaluation. Patient wants to follow-up as he originally had scheduled. We will give patient pain medication for this week. He is aware to return for any worsening symptoms. - Lab Data Result diagrams: 01/19/21 22:57 01/19/21 22:57 Lab Results 01/19/21 01/19/21 01/19/21 Range/Units 22:57 22:57 22:57 WBC 7.9 (3.8-10.6) k/uL RBC 4.53 (4.30-5.90) m/uL Hgb 14.2 (13.0-17.5) gm/dL Hct 42.3 (39.0-53.0) % MCV 93.4 (80.0-100.0) fL MCH 31.5 (25.0-35.0) pg MCHC 33.7 (31.0-37.0) g/dL RDW 13.3 (11.5-15.5) % Plt Count 276 (150-450) k/uL MPV 8.3 Neutrophils % 83 % Lymphocytes % 7 % Monocytes % 6 % Eosinophils % 1 % Basophils % 1 % Neutrophils # 6.6 (1.3-7.7) k/uL Lymphocytes # 0.5 L (1.0-4.8) k/uL Monocytes # 0.5 (0-1.0) k/uL Eosinophils # 0.1 (0-0.7) k/uL Basophils # 0.1 (0-0.2) k/uL PT 10.5 (9.0-12.0) sec INR 1.0 (<1.2) APTT 23.1 (22.0-30.0) sec Sodium 128 L (137-145) mmol/L Potassium 3.6 (3.5-5.1) mmol/L Chloride 93 L (98-107) mmol/L Carbon Dioxide 26 (22-30) mmol/L Anion Gap 9 mmol/L BUN 18 (9-20) mg/dL Creatinine 0.84 (0.66-1.25) mg/dL Est GFR (CKD-EPI)AfAm >90 (>60 ml/min/1.73 sqM) Est GFR (CKD-EPI)NonAf >90 (>60 ml/min/1.73 sqM) Glucose 104 H (74-99) mg/dL Calcium 9.8 (8.4-10.2) mg/dL Magnesium 2.0 (1.6-2.3) mg/dL Total Bilirubin 0.2 (0.2-1.3) mg/dL AST 34 (17-59) U/L ALT 13 (4-49) U/L Alkaline Phosphatase 85 (38-126) U/L Total Protein 6.4 (6.3-8.2) g/dL Albumin 3.7 (3.5-5.0) g/dL Urine Color Urine Appearance (Clear) Urine pH (5.0-8.0) Ur Specific [place] (1.001-1.035) Urine Protein (Negative) Urine Glucose (UA) (Negative) Urine Ketones (Negative) Urine Blood (Negative) Urine Nitrite (Negative) Urine Bilirubin (Negative) Urine Urobilinogen (<2.0) mg/dL Ur Leukocyte Esterase (Negative) 01/20/21 Range/Units 01:50 WBC (3.8-10.6) k/uL RBC (4.30-5.90) m/uL Hgb (13.0-17.5) gm/dL Hct (39.0-53.0) % MCV (80.0-100.0) fL MCH (25.0-35.0) pg MCHC (31.0-37.0) g/dL RDW (11.5-15.5) % Plt Count (150-450) k/uL MPV Neutrophils % % Lymphocytes % % Monocytes % % Eosinophils % % Basophils % % Neutrophils # (1.3-7.7) k/uL Lymphocytes # (1.0-4.8) k/uL Monocytes # (0-1.0) k/uL Eosinophils # (0-0.7) k/uL Basophils # (0-0.2) k/uL PT (9.0-12.0) sec INR (<1.2) APTT (22.0-30.0) sec Sodium (137-145) mmol/L Potassium (3.5-5.1) mmol/L Chloride (98-107) mmol/L Carbon Dioxide (22-30) mmol/L Anion Gap mmol/L BUN (9-20) mg/dL Creatinine (0.66-1.25) mg/dL Est GFR (CKD-EPI)AfAm (>60 ml/min/1.73 sqM) Est GFR (CKD-EPI)NonAf (>60 ml/min/1.73 sqM) Glucose (74-99) mg/dL Calcium (8.4-10.2) mg/dL Magnesium (1.6-2.3) mg/dL Total Bilirubin (0.2-1.3) mg/dL AST (17-59) U/L ALT (4-49) U/L Alkaline Phosphatase (38-126) U/L Total Protein (6.3-8.2) g/dL Albumin (3.5-5.0) g/dL Urine Color Yellow Urine Appearance Clear (Clear) Urine pH 6.0 (5.0-8.0) Ur Specific [place] 1.013 (1.001-1.035) Urine Protein Negative (Negative) Urine Glucose (UA) Negative (Negative) Urine Ketones 2+ H (Negative) Urine Blood Negative (Negative) Urine Nitrite Negative (Negative) Urine Bilirubin Negative (Negative) Urine Urobilinogen <2.0 (<2.0) mg/dL Ur Leukocyte Esterase Negative (Negative) Disposition Clinical Impression: Pain, Chest wall mass Disposition: HOME SELF-CARE Condition: Fair Instructions (If sedation given, give patient instructions): Chest Pain (ED) Additional Instructions: Please make sure you follow-up with your doctor on Monday. If you have worsening symptoms prior to that return to the hospital. Prescriptions: HYDROcodone/APAP 5-325MG [[place] 5-325] 1 tab PO Q6HR PRN #12 tab PRN Reason: Pain Is patient prescribed a controlled substance at d/c from ED?: No Referrals: Marcos Chu MD [Primary Care Provider] - 1-2 days Time of Disposition: 03:30
[2021-01-20 03:13] LABS: Appearance,Urine Clear (Clear); Bilirubin,Urine Negative (Negative); Blood,Urine Negative (Negative); Color,Urine Yellow; Glucose,Urine (UA) Negative (Negative); Ketones,Urine 2+ (Negative); Leukocyte Esterase,Urine Negative (Negative); Nitrite,Urine Negative (Negative); Protein,Urine Negative (Negative); Specific Gravity,Urine 1.013 (1.001-1.035); Urobilinogen,Urine <2.0 mg/dL (<2.0)
[2021-01-20] MEDS ORDERED: ACET/COD 300 MG/30 MG STARTER PACK 6 TAB BTL PO STA (03:31)
== END 2021-01-20 03:47 | disposition home or self-care (01) ==
LOC: EC 22:25
DX: R22.2 Localized swelling, mass and lump, trunk (principal); M54.9 Dorsalgia, unspecified; R53.1 Weakness; R42 Dizziness and giddiness; I10 Essential (primary) hypertension; J44.9 Chronic obstructive pulmonary disease, unspecified; K21.9 Gastro-esophageal reflux disease without esophagitis; M06.9 Rheumatoid arthritis, unspecified; Z79.1 Long term (current) use of non-steroidal anti-inflammatories (NSAID); Z85.21 Personal history of malignant neoplasm of larynx
CPT/HCPCS: 36415; 93005; 80053; 83735; 85025; 85610; 85730; 81003; 71046; 99285; 96374; 96361; J2270

== ENCOUNTER → 2021-01-29 | Outpatient (CLI) | payer MEDICARE, BC ==
--- NOTE | 2021-02-01 06:44 | PE ---
EXAMINATION TYPE: PET CT fusion skull to thigh DATE OF EXAM: 01/29/2021 COMPARISON: Prior PET/CT January 17, 2020 and older studies. HISTORY: History of head and neck cancer diagnosed February 04, 2019 treated surgically and with radiat ion and chemotherapy treatment ending 2019. TECHNIQUE: Following the intravenous administration of 12.09 mCi of F-18 FDG, whole body images are performed from the skull base to the midthigh. Images are reviewed on the computer in the coronal, a xial, and sagittal planes. Reconstructed rotating images are created on independent workstation and reviewed on the computer. A localization and attenuation correction CT is performed in conjunction with the PET scan. Blood glucose level equals 99. Dedicated PET/CT imaging of the neck also performed . SCAN: Subsequent Scan FINDINGS: SKULL BASE AND NECK: Bilateral radical neck dissection surgical change with bilateral clips in the n doris at the submandibular level extending inferiorly with resection of vocal cord and adjacent thyroid cartilage including thyroid gland is all demonstrated. Prior focus of increased hypermetabolic uptak e at site of thoracotomy shows no abnormal hypermetabolic uptake on current study. There is however n ew hypermetabolic enlarged right posterior cervical 1.9 x 1.7 cm lymph node or mass axial image 47, M ax SUV is 10.12. CHEST, MEDIASTINUM, AND HILAR REGION: Background moderate underlying emphysematous change redemonstra veena. There is new small to moderate-sized left pleural effusion which is predominantly ametabolic mil d hypermetabolic uptake in the posterior basilar region Max SUV 3.16. There is postobstructive atelec tasis from the left hilum extending superiorly and anteriorly with not well visualized roughly 2.0 x 1.0 cm hypermetabolic focus, max SUV is 6.66 on axial image 92 likely corresponding to central obstru ctive nodule outside CT axial image 181 series 401. There is hypermetabolic anterior right thoracic 2 .8 x 1.5 cm soft tissue nodule, max SUV is 11.17. There is hypermetabolic near 1.0 cm posterior left paraspinal metastatic lesion axial image 116, max SUV is 5.68. There is hypermetabolic bilateral uppe r extremity metastatic lesions, largest left upper extremity has max SUV 7.5 on axial image 87. ABDOMEN AND PELVIS: Additional new subcutaneous and intramuscular hypermetabolic metastatic lesions s cattered throughout the abdomen and pelvis, for reference roughly 2 to 3 cm lesion lateral to right h ip axial image 225, max SUV is 9.52. OSSEOUS STRUCTURES: New osseous metastatic disease including large anterolateral hypermetabolic destr uctive right mid rib lesion. Max SUV is 16.96 on axial image 110. There is destructive expansile righ t second rib and left posterior third rib hypermetabolic lesions. OTHER CT: Background at least moderate underlying emphysematous change is redemonstrated. Coronary ar cierra calcification is redemonstrated. Small to tiny pericardial effusion. Stable PEG tube. Prominent right-sided pelvic phleboliths. IMPRESSION: New diffuse metastatic disease as detailed above confirmed as suspected on recent outside CT.
== END | disposition home or self-care (01) ==
LOC: RADPETMAIN 15:40
PROVIDERS: ATTEND Internal Medicine Hematology & Oncology
DX: C76.0 Malignant neoplasm of head, face and neck (principal)
CPT/HCPCS: 78815; A9552

== ENCOUNTER 2021-02-01 08:45 | Day surgery (SDC) | payer MEDICARE ==
[2021-02-01] MEDS ORDERED: HYDROcodone/APAP 5-325MG 1 EACH TAB PO STA (09:10)
[2021-02-01 09:28] VITALS: TEMP 97.6
[2021-02-01 11:40] VITALS: BP 135/84; PULSE 76; RESP 14
--- NOTE | 2021-02-01 16:08 | US ---
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 TECHNIQUE: Ultrasound guided core biopsy right anterior mid chest wall mass. COMPARISON: PET/CT 01/29/2021 FINDINGS: The procedure of ultrasound guided core biopsy was explained to the patient. Benefits, alt ernatives, and risks were discussed. An informed consent was then obtained. The patient was placed in supine positioning for imaging and for the procedure. Initial ultrasound examination of the large centrally necrotic mass of the right anterolateral mid ch est wall measuring at least 4.9 cm. Inferior aspect of this mass which had more solid component was t argeted for biopsy. More medially just to the side of the sternum, a second 2.5 cm right-sided chest wall mass is identif ied. The overlying skin was prepped and draped in usual sterile fashion. Lidocaine was used as anesthetic into the skin and subcutaneous tissue up to area of concern. A small trish was made with surgical sca lpel. Under ultrasound guidance, an 18-gauge Temno biopsy device was used to obtain 2 core samples. The needle was removed, hemostasis obtained, and a dressing placed. The patient tolerated the procedure well without any immediate complication. The patient was kept in the radiology department for short stay after the procedure and then discharged home in stable condi tion. IMPRESSION: The large, centrally necrotic right anterolateral chest wall mass. Full pathology results to follow.
== END 2021-02-01 11:40 | disposition home or self-care (01) ==
LOC: RADPROMAIN 08:45
PROVIDERS: ATTEND Radiology Radiation Oncology
DX: R22.2 Localized swelling, mass and lump, trunk (principal)
CPT/HCPCS: 20206; 76942; 88305; 88341; 88342

== ENCOUNTER 2021-02-16 17:56 | Inpatient (IN) | payer MEDICARE ==
[2021-02-16] MEDS ORDERED: SODIUM CHLORIDE 0.9% 1,000 ML IV STA (19:00)
[2021-02-16] MEDS ORDERED: ONDANSETRON 4 MG/2 ML VIAL IVP STA (19:00)
--- NOTE | 2021-02-16 19:00 | ED ---
General Adult HPI - General Chief complaint: Nausea/Vomiting/Diarrhea Stated complaint: Cancer pt, pain, nausea Time Seen by Provider: 02/16/21 18:48 Source: patient, family Mode of arrival: ambulatory Limitations: no limitations - History of Present Illness Initial comments: 65-year-old male with past history of laryngeal cancer, trach, PEG tube presents emergency Department with reported nausea. is at bedside and provides a history. States that over the past 3 days the patient has been nauseated and has not been tolerating his tube feeds. He is supposed to do them 3 times daily and the patient only did it once this morning. He has had dry heaving. No fevers or chills. Admits that he has diffuse pain from head to toe. He is currently receiving radiation to his right chest wall for his metastatic disease. Follows with Dr. Long and Dr. Bejarano. He did see Ethan last week and patient states that he was told that he would not be able to beat the cancer. He has not received chemo since 2019 and states he will not do another round. Patient is also stating that he does not want to do radiation any further. He is on chronic pain medications at home however he cannot keep them down. He denies any abdominal pain. Admits to decrease in urination. The HPI is somewhat limited as the patient is nonverbal due to trach status - Related Data Home Medications Medication Instructions Recorded Confirmed guaiFENesin [Mucinex] 1,200 mg PO BID 02/01/21 02/16/21 HYDROcodone/APAP 10-325MG [[place] 1 tab PO Q8H PRN 02/16/21 02/16/21 10-325] Morphine Sulfate ER [Ms Contin] 30 mg PO Q12H 02/16/21 02/16/21 Allergies Allergy/AdvReac Type Severity Reaction Status Date / Time No Known Allergies Allergy Verified 02/16/21 20:27 Review of Systems ROS Statement: Those systems with pertinent positive or pertinent negative responses have been documented in the HPI. ROS Other: All systems not noted in ROS Statement are negative. Past Medical History Past Medical History: Cancer, COPD, GERD/Reflux, Hypertension, Rheumatoid Arthritis (RA) Additional Past Medical History / Comment(s): Laryngeal cancer with radiation History of Any Multi-Drug Resistant Organisms: None Reported Additional Past Surgical History / Comment(s): sinus surgery, colonoscopy, bronchoscopy.largynx peg tube, trach, laryngectomy Past Anesthesia/Blood Transfusion Reactions: No Reported Reaction Past Psychological History: No Psychological Hx Reported Smoking Status: Former smoker Past Alcohol Use History: Occasional Past Drug Use History: None Reported - Past Family History Father Additional Family Medical History / Comment(s): Father lived to be almost 90 yrs old. Brother(s) Family Medical History: Myocardial Infarction (MD) Mother Additional Family Medical History / Comment(s): Mother lived to be 94 yrs old. General Exam Limitations: language barrier General appearance: alert, in no apparent distress, cachectic Head exam: Present: atraumatic, normocephalic, normal inspection Eye exam: Present: normal appearance, PERRL, EOMI. Absent: scleral icterus, conjunctival injection, periorbital swelling ENT exam: Present: mucous membranes dry, other (stoma without bleeding or sputum production. No cellulitis of overlying skin) Respiratory exam: Present: normal lung sounds bilaterally. Absent: respiratory distress, wheezes, rales, rhonchi, stridor Cardiovascular Exam: Present: regular rate, normal rhythm, normal heart sounds. Absent: systolic murmur, diastolic murmur, rubs, gallop, clicks GI/Abdominal exam: Present: soft, normal bowel sounds. Absent: distended, tenderness, guarding, rebound, rigid Extremities exam: Present: normal inspection, full ROM, normal capillary refill. Absent: tenderness, pedal edema, joint swelling, calf tenderness Course Vital Signs 02/16/21 02/16/21 02/17/21 18:28 23:22 00:13 Temperature 99.2 F Pulse Rate 78 76 74 Respiratory 18 18 18 Rate Blood Pressure 136/105 90/59 105/73 O2 Sat by Pulse 95 95 95 Oximetry 02/17/21 02/17/21 02/17/21 06:31 08:05 10:33 Temperature 98.8 F 98.8 F Pulse Rate 72 82 Respiratory 18 18 Rate Blood Pressure 102/77 99/72 O2 Sat by Pulse 97 96 Oximetry 02/17/21 02/17/21 02/17/21 12:30 13:36 16:02 Temperature 98.3 F Pulse Rate 83 82 82 Respiratory 18 18 18 Rate Blood Pressure 100/61 99/71 125/85 O2 Sat by Pulse 95 94 L 94 L Oximetry 02/17/21 19:40 Temperature Pulse Rate Respiratory 20 Rate Blood Pressure 137/98 O2 Sat by Pulse Oximetry EKG Findings - EKG Comments: EKG Findings:: EKG demonstrates a normal sinus rhythm with a ventricular rate of 73. WV interval 168. QRS 92. QTC 445. Inverted T-wave in V2, V3. Low voltage overall. No acute ST segment elevation Medical Decision Making - Medical Decision Making Upon arrival patient was placed into room 3. History of physical exam is performed. IV is established the patient is started on a liter bolus of normal saline. Patient is given Zofran for nausea and Dilaudid for pain control. Laboratory studies were conducted. Sodium low at 125. Chest x-ray demonstrates pleural thickening and rib discharged on the right lateral chest wall involving multiple ribs which has progressed. Left pleural effusion and right pleural effusion are unchanged. KUB demonstrates nonacute abdomen. Results are discussed the patient. Did recommend overnight observation for fluid administration, pain control, antiemetics and evaluation by oncology and radiation oncology. Patient agreed to this. I spoke with Elisa from [facility] who agreed to admit the patient. He is currently awaiting a bed on the floor - Lab Data Result diagrams: 02/18/21 05:42 02/18/21 05:42 Lab Results 02/16/21 02/16/21 02/16/21 Range/Units 09:07 19:08 19:08 WBC 7.7 (3.8-10.6) k/uL RBC 4.47 (4.30-5.90) m/uL Hgb 13.7 (13.0-17.5) gm/dL Hct 40.3 (39.0-53.0) % MCV 90.1 (80.0-100.0) fL MCH 30.7 (25.0-35.0) pg MCHC 34.1 (31.0-37.0) g/dL RDW 13.3 (11.5-15.5) % Plt Count 381 (150-450) k/uL MPV 7.3 Neutrophils % 87 % Lymphocytes % 4 % Monocytes % 6 % Eosinophils % 1 % Basophils % 1 % Neutrophils # 6.7 (1.3-7.7) k/uL Lymphocytes # 0.3 L (1.0-4.8) k/uL Monocytes # 0.4 (0-1.0) k/uL Eosinophils # 0.1 (0-0.7) k/uL Basophils # 0.0 (0-0.2) k/uL Sodium 125 L (137-145) mmol/L Potassium 3.9 (3.5-5.1) mmol/L Chloride 94 L (98-107) mmol/L Carbon Dioxide 23 (22-30) mmol/L Anion Gap 8 mmol/L BUN 14 (9-20) mg/dL Creatinine 0.75 (0.66-1.25) mg/dL Est GFR (CKD-EPI)AfAm >90 (>60 ml/min/1.73 sqM) Est GFR (CKD-EPI)NonAf >90 (>60 ml/min/1.73 sqM) Glucose 114 H (74-99) mg/dL Plasma Lactic Acid John (0.7-2.0) mmol/L Calcium 9.3 (8.4-10.2) mg/dL Total Bilirubin 0.4 (0.2-1.3) mg/dL AST 40 (17-59) U/L ALT 18 (4-49) U/L Alkaline Phosphatase 70 (38-126) U/L Creatine Kinase (55-170) U/L Troponin I (0.000-0.034) ng/mL Total Protein 5.9 L (6.3-8.2) g/dL Albumin 3.2 L (3.5-5.0) g/dL Lipase 26 (23-300) U/L Urine Color Yellow Urine Appearance Cloudy (Clear) Urine pH 6.5 (5.0-8.0) Ur Specific [place] 1.020 (1.001-1.035) Urine Protein 1+ H (Negative) Urine Glucose (UA) Negative (Negative) Urine Ketones Trace H (Negative) Urine Blood Negative (Negative) Urine Nitrite Negative (Negative) Urine Bilirubin Negative (Negative) Urine Urobilinogen 2.0 (<2.0) mg/dL Ur Leukocyte Esterase Negative (Negative) Urine RBC 1 (0-5) /hpf Urine WBC 4 (0-5) /hpf Calcium Oxalate Crystal Moderate H (None) /hpf Urine Mucus Rare H (None) /hpf 02/16/21 02/16/21 02/16/21 Range/Units 19:08 19:08 19:08 WBC (3.8-10.6) k/uL RBC (4.30-5.90) m/uL Hgb (13.0-17.5) gm/dL Hct (39.0-53.0) % MCV (80.0-100.0) fL MCH (25.0-35.0) pg MCHC (31.0-37.0) g/dL RDW (11.5-15.5) % Plt Count (150-450) k/uL MPV Neutrophils % % Lymphocytes % % Monocytes % % Eosinophils % % Basophils % % Neutrophils # (1.3-7.7) k/uL Lymphocytes # (1.0-4.8) k/uL Monocytes # (0-1.0) k/uL Eosinophils # (0-0.7) k/uL Basophils # (0-0.2) k/uL Sodium (137-145) mmol/L Potassium (3.5-5.1) mmol/L Chloride (98-107) mmol/L Carbon Dioxide (22-30) mmol/L Anion Gap mmol/L BUN (9-20) mg/dL Creatinine (0.66-1.25) mg/dL Est GFR (CKD-EPI)AfAm (>60 ml/min/1.73 sqM) Est GFR (CKD-EPI)NonAf (>60 ml/min/1.73 sqM) Glucose (74-99) mg/dL Plasma Lactic Acid John 1.2 (0.7-2.0) mmol/L Calcium (8.4-10.2) mg/dL Total Bilirubin (0.2-1.3) mg/dL AST (17-59) U/L ALT (4-49) U/L Alkaline Phosphatase (38-126) U/L Creatine Kinase <20 L (55-170) U/L Troponin I <0.012 (0.000-0.034) ng/mL Total Protein (6.3-8.2) g/dL Albumin (3.5-5.0) g/dL Lipase (23-300) U/L Urine Color Urine Appearance (Clear) Urine pH (5.0-8.0) Ur Specific [place] (1.001-1.035) Urine Protein (Negative) Urine Glucose (UA) (Negative) Urine Ketones (Negative) Urine Blood (Negative) Urine Nitrite (Negative) Urine Bilirubin (Negative) Urine Urobilinogen (<2.0) mg/dL Ur Leukocyte Esterase (Negative) Urine RBC (0-5) /hpf Urine WBC (0-5) /hpf Calcium Oxalate Crystal (None) /hpf Urine Mucus (None) /hpf Disposition Clinical Impression: Dehydration, Pain, Chest wall mass, Nausea and vomiting, Hyponatremia Disposition: ADMITTED IP TO THIS [facility] Condition: Stable Is patient prescribed a controlled substance at d/c from ED?: No Decision to Admit Reason: Admit from EC Decision Date: 02/16/21 Decision Time: 21:52
[2021-02-16 19:21] LABS: Basophils % (A) 1 %; Eosinophils # (A) 0.1 k/uL (0-0.7); Eosinophils % (A) 1 %; HCT 40.3 % (39.0-53.0); HGB 13.7 gm/dL (13.0-17.5); Lymphocytes # (A) 0.3 k/uL (1.0-4.8); Lymphocytes % (A) 4 %; MCH 30.7 pg (25.0-35.0); MCHC 34.1 g/dL (31.0-37.0); MCV 90.1 fL (80.0-100.0); Mean Platelet Volume 7.3; Monocytes # (A) 0.4 k/uL (0-1.0); Monocytes % (A) 6 %; Neutrophils # (A) 6.7 k/uL (1.3-7.7); Neutrophils % (A) 87 %; Platelet Count 381 k/uL (150-450); RBC 4.47 m/uL (4.30-5.90); RDW 13.3 % (11.5-15.5); WBC 7.7 k/uL (3.8-10.6)
[2021-02-16] MEDS ORDERED: HYDROmorphone 1 MG/ML 1 ML SYRINGE IVP STA (19:34)
[2021-02-16 19:41] LABS: ALT 18 U/L (4-49); AST 40 U/L (17-59); African American GFR (CKD) >90 (>60 ml/min/1.73 sqM); Albumin 3.2 g/dL (3.5-5.0); Alkaline Phosphatase 70 U/L (38-126); Anion Gap 8 mmol/L; Blood Urea Nitrogen 14 mg/dL (9-20); Calcium 9.3 mg/dL (8.4-10.2); Carbon Dioxide 23 mmol/L (22-30); Chloride 94 mmol/L (98-107); Glucose 114 mg/dL (74-99); Lipase 26 U/L (23-300); Non-African American GFR(CKD) >90 (>60 ml/min/1.73 sqM); Potassium 3.9 mmol/L (3.5-5.1); Sodium 125 mmol/L (137-145); Total Bilirubin 0.4 mg/dL (0.2-1.3); Total Protein 5.9 g/dL (6.3-8.2)
--- NOTE | 2021-02-16 20:18 | XR ---
EXAMINATION TYPE: XR chest 2V DATE OF EXAM: 02/16/2021 COMPARISON: January 19, 2021 HISTORY: 2 views FINDINGS: There is blunting of the costophrenic angles. There is pleural thickening on the right lateral chest wall with apparent multiple rib destruction involving the second third fourth fifth ribs. Heart size is normal. There is some increased density left pulmonary hilum. There is no heart failure IMPRESSION: Pleural thickening and rib destruction on the right lateral chest wall involving multiple ribs that has progressed compared to old exam. No heart failure. Left pleural effusion unchanged. Sm all right pleural effusion unchanged. Adenopathy at the left pulmonary hilum unchanged.
--- NOTE | 2021-02-16 20:20 | XR ---
EXAMINATION TYPE: XR KUB DATE OF EXAM: 02/16/2021 COMPARISON: 08/08/2019 HISTORY: Nausea TECHNIQUE: FINDINGS: 2 views supine show gastrostomy tube over the left upper quadrant. Bowel gas pattern is nor mal. There is no sign of intestinal obstruction or pneumoperitoneum. There is small bilateral pleural effusions. There are surgical clips over the proximal left femur. IMPRESSION: Nonacute abdomen. Small pleural effusions.
[2021-02-16] MEDS ORDERED: NALOXONE 0.4 MG/ML 1 ML VIAL IV PRN (21:53)
[2021-02-16] MEDS ORDERED: ONDANSETRON 4 MG/2 ML VIAL IVP PRN (21:53)
[2021-02-16] MEDS ORDERED: MORPHINE SULFATE 4 MG/ML SYRINGE IV PRN (21:53)
[2021-02-16] MEDS: SODIUM CHLORIDE 0.9% 1,000 ML IV SCH (23:27)
[2021-02-17 04:27] LABS: Basophils % (A) 0 %; Eosinophils # (A) 0.2 k/uL (0-0.7); Eosinophils % (A) 3 %; HGB 13.1 gm/dL (13.0-17.5); Lymphocytes # (A) 0.7 k/uL (1.0-4.8); Lymphocytes % (A) 10 %; MCH 30.7 pg (25.0-35.0); MCHC 33.7 g/dL (31.0-37.0); MCV 91.2 fL (80.0-100.0); Mean Platelet Volume 7.8; Monocytes # (A) 0.7 k/uL (0-1.0); Monocytes % (A) 10 %; Neutrophils # (A) 5.3 k/uL (1.3-7.7); Neutrophils % (A) 75 %; Platelet Count 323 k/uL (150-450); RBC 4.28 m/uL (4.30-5.90); RDW 13.3 % (11.5-15.5)
[2021-02-17] MEDS: HYDROmorphone 1 MG/ML 1 ML SYRINGE IVP PRN ×5 (07:51→22:55)
[2021-02-17 09:30] LABS: Appearance,Urine Cloudy (Clear); Bilirubin,Urine Negative (Negative); Blood,Urine Negative (Negative); Calcium Oxalate Crystals,Urine Moderate /hpf; Color,Urine Yellow; Glucose,Urine (UA) Negative (Negative); Ketones,Urine Trace (Negative); Leukocyte Esterase,Urine Negative (Negative); Mucus,Urine Rare /hpf; Nitrite,Urine Negative (Negative); PH, Urine 6.5 (5.0-8.0); Protein,Urine 1+ (Negative); RBC,Urine 1 /hpf (0-5); WBC,Urine 4 /hpf (0-5)
[2021-02-17 10:26] LABS: African American GFR (CKD) 102.8 (60.0-200.0); Anion Gap 12.9 mmol/L (4.00-12.00); BUN/Creat Ratio 12.22 Ratio (12.00-20.00); Calcium 9.4 mg/dL (8.7-10.3); Carbon Dioxide 20.1 mmol/L (21.6-31.8); Non-African American GFR(CKD) 88.7 (60.0-200.0); Potassium 4.3 mmol/L (3.5-5.5)
[2021-02-17] MEDS: SODIUM CHLORIDE 0.9% 1,000 ML IV SCH ×2 (13:35→22:56)
[2021-02-17] MEDS ORDERED: ONDANSETRON 4 MG/2 ML VIAL IVP PRN (14:42)
--- NOTE | 2021-02-17 14:50 | P.CONS ---
History of Present Illness - Reason for Consult Consult date: 02/17/21 Laryngeal carcinoma Requesting physician: Maeve Marmolejo - Chief Complaint Intractable Nausea, vomiting - History of Present Illness Mr. Kirk was a 65-year-old male patient of Dr. Joceline Kramer with a history of laryngeal malignancy. Patient has had tracheostomy and PEG tube since February 2019. He has had his PEG tube changed at least 3 times, most recently about 5 m onths ago. He was recently seen by Dr. Joceline Kramer and found to have lung, soft tissue/subcutaneous and bone metastases. Patient was sent to radiation for some painful metastases. Over the last week he has had an increase in nausea and vomiting, unable to be controlled, they tried prescription medications with no resolved. Patient was no longer able to tolerate his tube feedings. So he is here in the emergency department for evaluation and treatment. Review of Systems 10 point review of systems is negative except as stated in HPI Past Medical History Past Medical History: Cancer, COPD, GERD/Reflux, Hypertension, Rheumatoid Arthritis (RA) Additional Past Medical History / Comment(s): Laryngeal cancer with radiation History of Any Multi-Drug Resistant Organisms: None Reported Additional Past Surgical History / Comment(s): sinus surgery, colonoscopy, bronchoscopy.largynx peg tube, trach, laryngectomy Past Anesthesia/Blood Transfusion Reactions: No Reported Reaction Past Psychological History: No Psychological Hx Reported Smoking Status: Former smoker Past Alcohol Use History: Occasional Past Drug Use History: None Reported - Past Family History Father Additional Family Medical History / Comment(s): Father lived to be almost 90 yrs old. Brother(s) Family Medical History: Myocardial Infarction ([place]) Mother Additional Family Medical History / Comment(s): Mother lived to be 94 yrs old. Medications and Allergies Home Medications Medication Instructions Recorded Confirmed Type guaiFENesin [Mucinex] 1,200 mg PO BID 02/01/21 02/16/21 History HYDROcodone/APAP 10-325MG [[place] 1 tab PO Q8H PRN 02/16/21 02/16/21 History 10-325] Morphine Sulfate ER [Ms Contin] 30 mg PO Q12H 02/16/21 02/16/21 History Allergies Allergy/AdvReac Type Severity Reaction Status Date / Time No Known Allergies Allergy Verified 02/16/21 20:27 Physical Exam Vitals: Vital Signs Temp Pulse Resp BP Pulse Ox 02/17/21 13:36 82 18 99/71 94 L 02/17/21 12:30 83 18 100/61 95 02/17/21 10:33 98.8 F 82 18 99/72 96 02/17/21 08:05 98.8 F 02/17/21 06:31 72 18 102/77 97 02/17/21 00:13 74 18 105/73 95 02/16/21 23:22 76 18 90/59 95 02/16/21 18:28 99.2 F 78 18 136/105 95 Intake and Output 02/16/21 02/17/21 02/17/21 22:59 06:59 14:59 Other: Weight 52.617 kg - Constitutional General appearance: cooperative, no acute distress, thin - EENT Tracheostomy Eyes: anicteric sclerae, EOMI ENT: hearing grossly normal - Neck Neck: no lymphadenopathy - Respiratory Respiratory: bilateral: rales (Anterior) - Cardiovascular Rhythm: regular Heart sounds: normal: S1, S2 Abnormal Heart Sounds: no systolic murmur, no diastolic murmur, no rub, no S3 Gallop, no S4 Gallop, no click, no other leg Peripheral Edema: bilateral: None - Gastrointestinal General gastrointestinal: no absent bowel sounds, no decreased bowel sounds, no distended, no hepatomegaly, no hyperactive bowel sounds, normal bowel sounds, no organomegaly, no rigid, no scaphoid, soft, no splenomegaly, no tenderness, no umbilical hernia, no ventral hernia - Integumentary Integumentary: pale - Neurologic Neurologic: CNII-XII intact - Musculoskeletal Musculoskeletal: generalized weakness - Psychiatric Psychiatric: A&O x's 3, appropriate affect, intact judgment & insight Results CBC & Chem 7: 02/17/21 03:56 02/17/21 06:21 Labs: Abnormal Lab Results - Last 24 Hours (Table) 02/16/21 02/16/21 02/16/21 Range/Units 09:07 19:08 19:08 RBC (4.30-5.90) m/uL Lymphocytes # 0.3 L (1.0-4.8) k/uL Sodium 125 L (137-145) mmol/L Chloride 94 L (98-107) mmol/L Carbon Dioxide (21.6-31.8) mmol/L Anion Gap (4.00-12.00) mmol/L Glucose 114 H (74-99) mg/dL Creatine Kinase (55-170) U/L Total Protein 5.9 L (6.3-8.2) g/dL Albumin 3.2 L (3.5-5.0) g/dL Urine Protein 1+ H (Negative) Urine Ketones Trace H (Negative) Calcium Oxalate Crystal Moderate H (None) /hpf Urine Mucus Rare H (None) /hpf 02/16/21 02/17/21 02/17/21 Range/Units 19:08 03:56 06:21 RBC 4.28 L (4.30-5.90) m/uL Lymphocytes # 0.7 L (1.0-4.8) k/uL Sodium 132 L (137-145) mmol/L Chloride (98-107) mmol/L Carbon Dioxide 20.1 L (21.6-31.8) mmol/L Anion Gap 12.90 H (4.00-12.00) mmol/L Glucose (74-99) mg/dL Creatine Kinase <20 L (55-170) U/L Total Protein (6.3-8.2) g/dL Albumin (3.5-5.0) g/dL Urine Protein (Negative) Urine Ketones (Negative) Calcium Oxalate Crystal (None) /hpf Urine Mucus (None) /hpf Chest x-ray: report reviewed Abdominal x-ray: report reviewed Assessment and Plan (1) Nausea and vomiting Narrative/Plan: Medications have been ordered for the same. Will see if these along with hydration help. Dietary has been consulted to follow with patient and resume PEG tube feedings as soon as possible. Patient may need a different rate or plan for administration with supportive drugs. Current Visit: Yes Status: Acute Priority: High Code(s): R11.2 - NAUSEA WITH VOMITING, UNSPECIFIED SNOMED Code(s): 52645554 (2) Laryngeal carcinoma Narrative/Plan: Patient recently diagnosed with widespread metastatic disease. See documented in the notes here that patient does not want to pursue any further treatment. I will confirm with the Primary Medical Oncologist that this was his understanding on last discussion with the patient. Current Visit: Yes Status: Chronic Priority: High Code(s): C32.9 - MALIGNANT NEOPLASM OF LARYNX, UNSPECIFIED SNOMED Code(s): 871258659 Plan: Doctor attests: I performed a history and physical examination of this patient, developed impression and plan of care. Discussed with dictator. I agree with dictators note, documented as a scribe. Time with Patient: Greater than 30
[2021-02-17] MEDS: METOCLOPRAMIDE 5 MG/ML 2 ML VIAL IVP SCH ×2 (16:00→22:53)
--- NOTE | 2021-02-17 22:00 | P.HPIM ---
History of Present Illness H&P Date: 02/17/21 Chief Complaint: Nausea vomiting and unable to tolerate oral diet. Patient is a 65-year-old male with a known history of laryngeal cancer status post tracheostomy and PEG tube placement, metastasis to soft tissue/subcutaneous and bony metastasis, status post radiation due to painful metastasis, COPD, GERD, hypertension, prior history of smoking presents to ER with complaints of nausea and vomiting unable to tolerate oral diet. Patient had his PEG tube changed 3 times and most recently about 5 months ago. Patient is no longer able to tolerate tube feedings. Came to ER for evaluation. Chest x-ray showed pleural thickening and rib destruction on the right lateral chest wall involving multiple ribs that has progressed with compatible exam. No heart failure. Left pleural effusion unchanged. Small right pleural effusion unchanged. Adenopathy in the left pulmonary hilum unchanged. KUB x-ray showed nonacute abdomen. Small pleural effusions. EKG showed normal sinus rhythm. Low voltage QRS. Laboratory showed sodium 125 potassium 3.9 chloride 94 BUN 14 and creatinine 0.75 UA negative for infection. Review of Systems Complete review of systems could not be obtained from patient except as per HPI. Past Medical History Past Medical History: Cancer, COPD, GERD/Reflux, Hypertension, Rheumatoid Arthritis (RA) Additional Past Medical History / Comment(s): Laryngeal cancer with radiation History of Any Multi-Drug Resistant Organisms: None Reported Additional Past Surgical History / Comment(s): sinus surgery, colonoscopy, bronchoscopy.largynx peg tube, trach, laryngectomy Past Anesthesia/Blood Transfusion Reactions: No Reported Reaction Past Psychological History: No Psychological Hx Reported Smoking Status: Former smoker Past Alcohol Use History: Occasional Past Drug Use History: None Reported - Past Family History Father Additional Family Medical History / Comment(s): Father lived to be almost 90 yrs old. Brother(s) Family Medical History: Myocardial Infarction ([place]) Mother Additional Family Medical History / Comment(s): Mother lived to be 94 yrs old. Medications and Allergies Home Medications Medication Instructions Recorded Confirmed Type guaiFENesin [Mucinex] 1,200 mg PO BID 02/01/21 02/16/21 History HYDROcodone/APAP 10-325MG [[place] 1 tab PO Q8H PRN 02/16/21 02/16/21 History 10-325] Morphine Sulfate ER [Ms Contin] 30 mg PO Q12H 02/16/21 02/16/21 History Allergies Allergy/AdvReac Type Severity Reaction Status Date / Time No Known Allergies Allergy Verified 02/16/21 20:27 Physical Exam Vitals: Vital Signs Temp Pulse Resp BP Pulse Ox 02/17/21 10:33 98.8 F 82 18 99/72 96 02/17/21 08:05 98.8 F 02/17/21 06:31 72 18 102/77 97 02/17/21 00:13 74 18 105/73 95 02/16/21 23:22 76 18 90/59 95 02/16/21 18:28 99.2 F 78 18 136/105 95 Intake and Output 02/16/21 02/17/21 02/17/21 22:59 06:59 14:59 Other: Weight 52.617 kg PHYSICAL EXAMINATION: Patient is lying in the bed comfortably, no acute distress, awake alert and oriented.. HEENT: Normocephalic. Neck is supple. Pupils reactive. Nostrils clear. Oral cavity is moist. Neck reveals no JVD, carotid bruits, or thyromegaly. CHEST EXAMINATION: Tracheostomy with no voluntary secretions.. Symmetrical expansion. Lung chaudhary clear to auscultation and percussion. CARDIAC: Normal S1, S2 with no gallops. No murmurs ABDOMEN: Soft. Bowel sounds normal. No organomegaly. No abdominal bruits. Extremities: reveal no edema. No clubbing or cyanosis Neurologically awake, alert, oriented x3 with well-coordinated movements. No focal deficits noted Skin: No rash or skin lesions. Psychiatric: Coperative. Musculoskeletal: No joint swelling or deformity. Normal range of motion. Results CBC & Chem 7: 02/18/21 05:42 02/18/21 05:42 Labs: Abnormal Lab Results - Last 24 Hours (Table) 02/16/21 02/16/21 02/16/21 Range/Units 09:07 19:08 19:08 RBC (4.30-5.90) m/uL Lymphocytes # 0.3 L (1.0-4.8) k/uL Sodium 125 L (137-145) mmol/L Chloride 94 L (98-107) mmol/L Carbon Dioxide (21.6-31.8) mmol/L Anion Gap (4.00-12.00) mmol/L Glucose 114 H (74-99) mg/dL Creatine Kinase (55-170) U/L Total Protein 5.9 L (6.3-8.2) g/dL Albumin 3.2 L (3.5-5.0) g/dL Urine Protein 1+ H (Negative) Urine Ketones Trace H (Negative) Calcium Oxalate Crystal Moderate H (None) /hpf Urine Mucus Rare H (None) /hpf 02/16/21 02/17/21 02/17/21 Range/Units 19:08 03:56 06:21 RBC 4.28 L (4.30-5.90) m/uL Lymphocytes # 0.7 L (1.0-4.8) k/uL Sodium 132 L (137-145) mmol/L Chloride (98-107) mmol/L Carbon Dioxide 20.1 L (21.6-31.8) mmol/L Anion Gap 12.90 H (4.00-12.00) mmol/L Glucose (74-99) mg/dL Creatine Kinase <20 L (55-170) U/L Total Protein (6.3-8.2) g/dL Albumin (3.5-5.0) g/dL Urine Protein (Negative) Urine Ketones (Negative) Calcium Oxalate Crystal (None) /hpf Urine Mucus (None) /hpf Thrombosis Risk Factor Assmnt - DVT/VTE Prophylaxis DVT/VTE Prophylaxis: Pharmacologic Prophylaxis ordered Assessment and Plan Assessment: Nausea vomiting and unable to tolerate oral diet. Hypovolemic hyponatremia Not tolerating PEG tube feeding with. History of PEG tube change x3 Metastatic laryngeal cancer status post tracheostomy COPD Previous history of smoking Hypertension Rheumatoid arthritis Severe ProteinCalorie malnutrition GERD Plan: Patient will be continued on Zofran as needed for nausea and vomiting. Continue with IV hydration with normal saline. Nutrition was consulted to start back on PEG tube feeding. Follow-up CBC and BMP. Oncology on board. Further recommendations based on clinical course. Time with Patient: Greater than 30
[2021-02-17] MEDS: FAMOTIDINE 20 MG/2 ML VIAL IV SCH (22:53)
[2021-02-18] MEDS: HYDROmorphone 1 MG/ML 1 ML SYRINGE IVP PRN ×7 (02:00→22:08)
[2021-02-18 06:17] LABS: Basophils # (A) 0.1 k/uL (0-0.2); Basophils % (A) 1 %; Eosinophils # (A) 0.2 k/uL (0-0.7); Eosinophils % (A) 2 %; HCT 42.5 % (39.0-53.0); HGB 14.4 gm/dL (13.0-17.5); Hypochromasia Slight; Lymphocytes # (A) 0.3 k/uL (1.0-4.8); Lymphocytes % (A) 3 %; MCH 32.3 pg (25.0-35.0); MCV 94.9 fL (80.0-100.0); Mean Platelet Volume 7.4; Monocytes # (A) 0.8 k/uL (0-1.0); Monocytes % (A) 9 %; Neutrophils # (A) 6.8 k/uL (1.3-7.7); Neutrophils % (A) 81 %; Platelet Count 211 k/uL (150-450); RBC 4.47 m/uL (4.30-5.90); RDW 12.8 % (11.5-15.5); WBC 8.4 k/uL (3.8-10.6)
[2021-02-18 06:20] LABS: African American GFR (CKD) >90 (>60 ml/min/1.73 sqM); Anion Gap 10 mmol/L; Blood Urea Nitrogen 7 mg/dL (9-20); Calcium 8.4 mg/dL (8.4-10.2); Carbon Dioxide 18 mmol/L (22-30); Chloride 101 mmol/L (98-107); Glucose 96 mg/dL (74-99); Non-African American GFR(CKD) >90 (>60 ml/min/1.73 sqM); Sodium 129 mmol/L (137-145)
[2021-02-18 06:33] LABS: Potassium 4.1 mmol/L (3.5-5.1)
[2021-02-18] MEDS: FAMOTIDINE 20 MG/2 ML VIAL IV SCH ×2 (08:35→22:08)
[2021-02-18] MEDS: METOCLOPRAMIDE 5 MG/ML 2 ML VIAL IVP SCH ×3 (08:35→22:07)
[2021-02-18] MEDS: HEPARIN SODIUM,PORCINE/PF 5,000 UNIT/0.5 ML SYRINGE SQ SCH ×2 (08:35→22:07)
--- NOTE | 2021-02-18 12:06 | CDI ---
Documentation Clarification Form Date: 02/18/2021 11:52:09 AM From: Rosario Harvey CCS, CCDS Admit Date: 02/16/2021 09:55:00 PM Patient Name: Maurice Wynn Visit Number: [id number] Discharge Date: ATTENTION: The Clinical Documentation Specialists (CDI) and [facility] Coding Staff appreciate your assistance in clarifying documentation. Please respond to the clarification below the line at the bottom and electronically sign. The CDI & [facility] Coding staff will review the response and follow-up if needed. Please note: Queries are made part of the Legal Health Record. If you have any questions, please contact the author of this message via ITS. Dr. Radha Mojica: The patient is admitted with Hyponatremia with a current medical history of Laryngeal Cancer with Metastasis to soft tissue & bone. Has Tracheostomy & PEG for feeding, recently not tolerating tube feedings. The patient's BMI is 16.6. Based on this information and the findings below, is there an additional diagnosis that is clinically appropriate for this patient? History/Risk Factors per the 02/17 H/P: Metastatic Laryngeal Cancer status post Tracheostomy, PEG tube and Radiation and Chemotherapy, COPD, Former smoker, Hypertension, Rheumatoid Arthritis, GERD. Clinical Indicators: Presented to the ED on 02/16 with Nausea, Vomiting, Diarrhea, generalized pain and unable to tolerate tube feeds. ED Clinical Impression: Dehydration, Pain, Chest wall mass, Nausea & vomiting, Hyponatremia. Dietitian consulted 02/17 Nutrition Diagnosis: Severe Chronic Malnutrition Appetite poor, consumed 0% on 02/17, Dry heaving. Decreased Energy, Moderate temporalis, pectoralis major muscle wasting. Weight 52.617 kg, Underweight. IBW 75.5 kg, @ 70% of IBW. Has had weight loss in past month. Height: 5 ft 10 in. Current BMI: 16.6 Treatment: IV Zofran 4 mg prn, IV Morphine 4 mg prn, IV Na Cl 1,00 mls @ 999 mls/hr q1H, IV Dilaudid 1 mg x1, IV Na Cl 1,000 mls @ 75 mls/hr q13H, IV Reglan, IV Pepcid. HOB elevated, Daily I&Os, Enteral Tube Feeding 2 mahesh @ 20 ml/hr, Code statue: No Code. Is there an additional diagnosis that is clinically appropriate for this patient? [ ] Mild Protein-Calorie Malnutrition [ ] Moderate Protein-Calorie Malnutrition [ ] Severe Protein-Calorie Malnutrition [ ] Other condition, please specify [ ] Unable to Determine (Template Last Revised: August 2020) 02/19 Severe Protein Calorie Malnutrition is added to the 02/17 History & Physical, Dr. Mojica. CDI: mka. MTDD
--- NOTE | 2021-02-18 14:58 | P.PN ---
Subjective Progress Note Date: 02/18/21 Principal diagnosis: N,V, hyponatremia. Metastatic laryngeal malig In f/u today pt is ambulating independently in the room, he is denying any nausea, no vomiting, he is back on tube feeds and tolerating so far. Objective - Vital Signs Vital signs: Vital Signs Temp 98.8 F 02/18/21 12:25 Pulse 74 02/18/21 12:25 Resp 18 02/18/21 12:25 BP 117/78 02/18/21 12:25 Pulse Ox 96 02/18/21 12:25 Intake & Output 02/17/21 02/18/21 02/18/21 18:59 06:59 18:59 Weight 52.617 kg 52.617 kg Other: Voiding Method Toilet Toilet - Constitutional General appearance: Present: cooperative, no acute distress, thin - EENT EENT Comment(s): well healed laryngostoma Eyes: Present: anicteric sclerae, EOMI ENT: Present: hearing grossly normal - Respiratory Respiratory: right: diminished, left: CTA - Cardiovascular Rhythm: regular Heart sounds: normal: S1, S2 Abnormal Heart Sounds: Absent: systolic murmur, diastolic murmur, rub, S3 Gallop, S4 Gallop, click, other - Peripheral edema leg Peripheral Edema: bilateral: None - Gastrointestinal Gastrointestinal Comment(s): PEG insertion not painful to palpation General gastrointestinal: Present: normal bowel sounds, soft - Integumentary Integumentary: Present: pale - Neurologic Neurologic: Present: CNII-XII intact - Musculoskeletal Musculoskeletal: Present: strength equal bilaterally - Psychiatric Psychiatric: Present: A&O x's 3, appropriate affect, intact judgment & insight - Labs CBC & Chem 7: 02/18/21 05:42 02/18/21 05:42 Labs: Abnormal Lab Results - Last 24 Hours (Table) 02/18/21 02/18/21 Range/Units 05:42 05:42 Lymphocytes # 0.3 L (1.0-4.8) k/uL Sodium 129 L (137-145) mmol/L Carbon Dioxide 18 L (22-30) mmol/L BUN 7 L (9-20) mg/dL Assessment and Plan (1) Nausea and vomiting Narrative/Plan: Medications have been ordered for the same. With hydration pt is no longer reporting N or V. Dietitian resumed PEG tube feedings and pt is tolerating well. Will send Rx for reglan Current Visit: Yes Status: Acute Priority: High Code(s): R11.2 - NAUSEA WITH VOMITING, UNSPECIFIED SNOMED Code(s): 63084059 (2) Laryngeal carcinoma Narrative/Plan: Patient recently diagnosed with widespread metastatic disease. Pt wants to f/u with Medical Oncologist Dr. Bejarano in a few weeks so he has a chance to feel better. Will schedule him for f/u. Current Visit: Yes Status: Chronic Priority: High Code(s): C32.9 - MALIGNANT NEOPLASM OF LARYNX, UNSPECIFIED SNOMED Code(s): 497736439
[2021-02-18] MEDS: SODIUM CHLORIDE 0.9% 1,000 ML IV SCH (16:42)
[2021-02-18] MEDS: ALBUTEROL NEBULIZED 2.5 MG/3 ML INHALATION PRN (18:05)
[2021-02-19 06:19] VITALS: RESP 18
[2021-02-19] MEDS: SODIUM CHLORIDE 0.9% 1,000 ML IV SCH (07:40)
[2021-02-19] MEDS: HYDROmorphone 1 MG/ML 1 ML SYRINGE IVP PRN (08:13)
[2021-02-19] MEDS: HEPARIN SODIUM,PORCINE/PF 5,000 UNIT/0.5 ML SYRINGE SQ SCH (08:13)
[2021-02-19] MEDS: METOCLOPRAMIDE 5 MG/ML 2 ML VIAL IVP SCH (08:13)
[2021-02-19] MEDS: FAMOTIDINE 20 MG/2 ML VIAL IV SCH (08:14)
[2021-02-19] MEDS: ALBUTEROL NEBULIZED 2.5 MG/3 ML INHALATION PRN ×2 (08:15→11:33)
[2021-02-19 12:35] VITALS: BP 126/87; PULSE 85; TEMP 98
[2021-02-19 14:26] VITALS: BMI 17.5
--- NOTE | 2021-02-19 15:04 | P.PN ---
Subjective Progress Note Date: 02/18/21 Principal diagnosis: Nausea vomiting and unable to tolerate oral diet Patient is a 65-year-old male with a known history of laryngeal cancer status post tracheostomy and PEG tube placement, metastasis to soft tissue/subcutaneous and bony metastasis, status post radiation due to painful metastasis, COPD, GERD, hypertension, prior history of smoking presents to ER with complaints of nausea and vomiting unable to tolerate oral diet. Patient had his PEG tube changed 3 times and most recently about 5 months ago. Patient is no longer able to tolerate tube feedings. Came to ER for evaluation. Chest x-ray showed pleural thickening and rib destruction on the right lateral chest wall involving multiple ribs that has progressed with compatible exam. No heart failure. Left pleural effusion unchanged. Small right pleural effusion unchanged. Adenopathy in the left pulmonary hilum unchanged. KUB x-ray showed nonacute abdomen. Small pleural effusions. EKG showed normal sinus rhythm. Low voltage QRS. Laboratory showed sodium 125 potassium 3.9 chloride 94 BUN 14 and creatinine 0.75 UA negative for infection. 03-09 Patient is currently lying in the bed awake alert and oriented 3. Patient is unable to communicate due to tracheostomy. Able to write on the paper. Ot marisol patient is refusing tube feeding. Not tolerating gravity feedings. Nutrition service is on board. Laboratory data showed sodium 129 potassium 4.1 chloride 101, BUN 17 creatinine 0.69 Current medications reviewed. Objective - Vital Signs Vital signs: Vital Signs Temp 99.1 F 02/18/21 21:00 Pulse 82 02/18/21 21:00 Resp 16 02/18/21 21:00 BP 115/81 02/18/21 21:00 Pulse Ox 93 L 02/18/21 21:00 Intake & Output 02/18/21 02/18/21 02/19/21 06:59 18:59 06:59 Weight 52.617 kg 55.4 kg Other: Voiding Method Toilet Toilet - Exam PHYSICAL EXAMINATION: Patient is lying in the bed comfortably, no acute distress, awake alert and oriented.. HEENT: Normocephalic. Neck is supple. Pupils reactive. Nostrils clear. Oral cavity is moist. Neck reveals no JVD, carotid bruits, or thyromegaly. CHEST EXAMINATION: Tracheostomy with no voluntary secretions.. Symmetrical expansion. Lung chaudhary clear to auscultation and percussion. CARDIAC: Normal S1, S2 with no gallops. No murmurs ABDOMEN: Soft. Bowel sounds normal. No organomegaly. No abdominal bruits. Extremities: reveal no edema. No clubbing or cyanosis Neurologically awake, alert, oriented x3 with well-coordinated movements. No focal deficits noted Skin: No rash or skin lesions. Psychiatric: Coperative. Musculoskeletal: No joint swelling or deformity. Normal range of motion. - Labs CBC & Chem 7: 02/18/21 05:42 02/18/21 05:42 Labs: Abnormal Lab Results - Last 24 Hours (Table) 02/18/21 02/18/21 Range/Units 05:42 05:42 Lymphocytes # 0.3 L (1.0-4.8) k/uL Sodium 129 L (137-145) mmol/L Carbon Dioxide 18 L (22-30) mmol/L BUN 7 L (9-20) mg/dL Assessment and Plan Assessment: Nausea vomiting and unable to tolerate oral diet. Improved now. Hypovolemic hyponatremia Not tolerating PEG tube feeding with. History of PEG tube change x3 Metastatic laryngeal cancer status post tracheostomy COPD Previous history of smoking Hypertension Rheumatoid arthritis Severe ProteinCalorie malnutrition GERD Plan: Patient will be continued on Zofran as needed for nausea and vomiting. Continue with IV hydration with normal saline. Nutrition was consulted to start back on PEG tube feeding. Patient is apparently not tolerating gravity feedings at home. tube feeding pump will be ordered. Follow-up CBC and BMP. Oncology on board. Further recommendations based on clinical course.
--- NOTE | 2021-02-19 15:37 | P.PN ---
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 He has not required pain medication for several hours. He is planning on heading home this afternoon. Objective - Vital Signs Vital signs: Vital Signs Temp 98.0 F 02/19/21 12:33 Pulse 85 02/19/21 12:33 Resp 18 02/19/21 12:33 BP 126/87 02/19/21 12:33 Pulse Ox 98 02/19/21 12:33 Intake & Output 02/18/21 02/19/21 02/19/21 18:59 06:59 18:59 Weight 55.4 kg 55.4 kg Other: Voiding Method Toilet Toilet Toilet - Constitutional General appearance: Present: no acute distress, thin - EENT Eyes: Present: EOMI, PERRLA ENT: Present: NA/AT - Neck Neck: Absent: lymphadenopathy - Cardiovascular Rhythm: regular - Gastrointestinal General gastrointestinal: Absent: distended - Integumentary Integumentary: Absent: calor, cellulitis - Neurologic Neurologic: Present: CNII-XII intact - Musculoskeletal Musculoskeletal: Present: strength equal bilaterally - Psychiatric Psychiatric: Present: A&O x's 3, appropriate affect - Labs CBC & Chem 7: 02/18/21 05:42 02/18/21 05:42 Assessment and Plan Assessment: The patient is a 65-year-old male with a history of a 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 He underwent adjuvant chemoradiation due to +PAUL finishing on 07/12/19. In 12/2020 the patient developed right sided chest-wall pain and repeat imaging is worrisome for bone metastases. PET-CT revealed widely metastatic disease with bone and soft tissue involvement. Biopsy of the right chest-wall lesion was positive for squamous cell carcinoma. 1. Malignant pain (bone metastases): The patient did not quite finish his palliative radiotherapy to the right chest-wall and lower back (had 2 fractions left). His pain seems better controlled now on his hospital regimen. He is not interested in finishing the final part of his radiotherapy. He can follow-up with radiation oncology as needed. 2. Metastatic squamous cell carcinoma: The patient unfortunately missed a visit with Dr. Bejarano to discuss treatment options. He understands that treatment would be palliative. He has told me on several occasions he would ref use chemotherapy but may be willing to consider immunotherapy. Time with Patient: Less than 30
== END 2021-02-19 15:30 | disposition home or self-care (01) | DRG 640 ==
LOC: EC 17:56 → 5NMEDONC 21:55
PROVIDERS: ADMIT Hospitalist; ATTEND Hospitalist
PROC: 3E0G76Z Introduction of Nutritional Substance into Upper GI, Via Natural or Artificial Opening (ICD-10-PCS; principal; 2021-02-17)
DX: E87.1 Hypo-osmolality and hyponatremia (principal); E43 Unspecified severe protein-calorie malnutrition; Z68.1 Body mass index [BMI] 19.9 or less, adult; R64 Cachexia; C79.51 Secondary malignant neoplasm of bone; J90 Pleural effusion, not elsewhere classified; C79.89 Secondary malignant neoplasm of other specified sites; G89.3 Neoplasm related pain (acute) (chronic); I10 Essential (primary) hypertension; J44.9 Chronic obstructive pulmonary disease, unspecified; K21.9 Gastro-esophageal reflux disease without esophagitis; M06.9 Rheumatoid arthritis, unspecified; C32.1 Malignant neoplasm of supraglottis; E86.0 Dehydration; E86.1 Hypovolemia; Z90.02 Acquired absence of larynx; Z82.49 Family history of ischemic heart disease and other diseases of the circulatory system; Z85.21 Personal history of malignant neoplasm of larynx; Z87.891 Personal history of nicotine dependence; Z92.3 Personal history of irradiation; Z93.1 Gastrostomy status; Z93.0 Tracheostomy status; Z79.891 Long term (current) use of opiate analgesic; Z51.5 Encounter for palliative care; Z92.21 Personal history of antineoplastic chemotherapy; Z98.890 Other specified postprocedural states
CPT/HCPCS: 36415; 71046; 74018; 80048; 80053; 81001; 82550; 83605; 83690; 84484; 85025; 93005; 94640; 96361; 96374; 96375; 99285

== ENCOUNTER 2021-04-02 16:34 | Inpatient (IN) | payer BC, MEDICAID, MEDICARE ==
[2021-04-02] MEDS ORDERED: GLYCOPYRROLATE 0.2 MG/ML 2 ML VIAL IVP PRN (17:02)
[2021-04-02] MEDS ORDERED: ACETAMINOPHEN SUPPOSITORY 650 MG SUPP RECTAL PRN (17:02)
[2021-04-02] MEDS ORDERED: ATROPINE OPHTH SOLN 1% 5ML BTL SUBLINGUAL PRN (17:02)
[2021-04-02] MEDS ORDERED: LORazepam 2 MG/ML INJ IV PRN (17:02)
[2021-04-02] MEDS ORDERED: HALOPERIDOL LACTATE 5 MG/ML 1 ML VIAL IM PRN (17:02)
[2021-04-02] MEDS ORDERED: ONDANSETRON 4 MG/2 ML VIAL IVP PRN (17:02)
[2021-04-02] MEDS ORDERED: MORPHINE SULFATE 2 MG/ML SYRINGE IV PRN (17:02)
[2021-04-02] MEDS: MORPHINE SULFATE (100 MG/2 ML) 100 MG in SODIUM CHLORIDE 0.9% 100 ML IV SCH (19:48)
[2021-04-02] MEDS: SCOPOLAMINE 1.5MG/72HR PATCH TRANSDERM SCH (19:50)
[2021-04-03] MEDS: MORPHINE SULFATE (100 MG/2 ML) 100 MG in SODIUM CHLORIDE 0.9% 100 ML IV SCH (03:00)
[2021-04-03 10:51] VITALS: BMI 16.5
--- NOTE | 2021-04-03 15:24 | HP ---
HISTORY AND PHYSICAL DATE OF SERVICE: 04/03/2021. CHIEF COMPLAINTS: Pain control and laryngeal cancer. HISTORY OF PRESENT ILLNESS: This 65-year-old gentleman with a past medical history of COPD, history of GERD, hypertension, rheumatoid arthritis, laryngeal cancer, being followed by Dr. Jose Long in the outpatient setting, was having severe pain. The patient was admitted last night for symptom control. Patient was started on morphine drip at 3 /hour and the patient is basically unresponsive at this time, unable to give a history. Most of the history is taken from my discussions with staff as well as review of the chart. The patient was admitted last month to the hospital with hypovolemic hyponatremia and multiple other medical problems. The patient had metastatic laryngeal cancer and had a tracheostomy also. PAST MEDICAL HISTORY: History of metastatic laryngeal cancer, COPD, GERD, rheumatoid arthritis. MEDICATIONS: Home medications are reviewed and include Mucinex, MS Contin, [place]. Doses are reviewed. ALLERGIES: NONE. Family history, social history, review of systems could not be taken. PHYSICAL EXAMINATION: Patient is stuporous. Pulse is 83, blood pressure 73/56, respiration 20, pulse ox 88% on room air. HEENT: Conjunctivae normal. NECK: No jugular venous distention. CARDIOVASCULAR: S1, S2 muffled. RESPIRATION: Breath sounds diminished at the bases. A few scattered rhonchi. ABDOMEN: Soft. NERVOUS SYSTEM: Diffusely weak. LABS: Not available. COVID-19 is negative. ASSESSMENT: 1. Laryngeal cancer, metastatic. 2. Severe pain. 3. On IV morphine. 4. Chronic obstructive pulmonary disease. 5. History of gastroesophageal reflux disease. 6. Hypertension. 7. History of rheumatoid arthritis. 8. Remote history of nicotine dependence. 9. Severe protein-calorie malnutrition. BMI of 16.5. 10.NO CODE, NO CPR. 11.On hospice. RECOMMENDATIONS AND DISCUSSION: In this 65-year-old gentleman with presented with significant advanced metastatic laryngeal cancer, at this time I recommend to continue the morphine drip. Otherwise, continue the rest of the comfort measures. Prognosis is guarded because of multiple complex medical issues. Further recommendations to follow. MMODL / IJN: [id number] / MTDD
[2021-04-04] MEDS: MORPHINE SULFATE (100 MG/2 ML) 100 MG in SODIUM CHLORIDE 0.9% 100 ML IV SCH (06:04)
--- NOTE | 2021-04-04 19:27 | PN ---
PROGRESS NOTE DATE OF SERVICE: 04/04/2021 This 65-year-old gentleman who was admitted with pharyngeal cancer metastatic on hospice care was given morphine drip. No chest pain. No palpitation. EXAM: The patient is stuporous. Pulse is 83, blood pressure 73/50, respiration 20, temperature normal, pulse ox 88% on room air. HEENT: Conjunctivae normal. Oral mucosa moist. NECK: No jugular venous distention. No lymph node enlargement. CARDIOVASCULAR: S1, S2, muffled. No S3, no S4, RESPIRATORY: Diminished breath sounds at the bases. ABDOMEN: Soft, nontender. LABS: Not available. ASSESSMENT: 1. Perineal cancer, metastatic. 2. Severe pain. 3. On IV morphine. 4. COPD. 5. History of GERD. 6. Hypertension. 7. History of rheumatoid arthritis. 8. Remote history of nicotine dependence. 9. Severe protein calorie malnutrition, BMI of 16.2. 10.NO CODE, NO CPR, NO VENT. 11.On Hospice. RECOMMENDATIONS: Recommend to continue current medications, continue comfort measures. Continue the morphine drip. Prognosis extremely guarded because of multiple complex medical issues. Further recommendations to follow. MMODL / IJN: [id number] /
[2021-04-04 21:38] VITALS: BP 98/62; TEMP 98.7
[2021-04-05] MEDS: MORPHINE SULFATE (100 MG/2 ML) 100 MG in SODIUM CHLORIDE 0.9% 100 ML IV SCH (06:21)
[2021-04-05] MEDS: SCOPOLAMINE 1.5MG/72HR PATCH TRANSDERM SCH (17:57)
--- NOTE | 2021-04-05 23:07 | P.PN ---
Subjective This is a pleasant 65 years old male was admitted with pharyngeal/laryngeal cancer with metastasis. Hospice cares was already started by Dr. Meza from yesterday. Patient looks comfortable with no distress. Other chronic medical conditions including COPD, GERD, hypertension, rheumatoid arthritis. Currently patient is unresponsive and cannot provide information. It was obtained from staff and records No family at bedside when I saw the patient, however was at bedside during dayshift per staff Also there is hospice nurse note from yesterday and today were following the case closely, please refer to their input at" notes"n I saw the patient however as per staff was at bedside during the day shift. Objective - Vital Signs Vital signs: Vital Signs Temp 98.7 F 04/04/21 21:00 Pulse 94 04/05/21 08:59 Resp 14 04/04/21 21:00 BP 98/62 04/04/21 21:00 Pulse Ox 87 L 04/05/21 08:59 Intake & Output 04/04/21 04/05/21 04/05/21 18:59 06:59 18:59 Intake Total 0 74.307 19.89 Balance 0 74.307 19.89 Intake: Intake, IV Titration 74.307 19.89 Amount Morphine Sulfate (100 mg/ 74.307 19.89 2 ml) 100 mg In Sodium Chloride 0.9% 100 ml @ 1 MG/HR 1.02 mls/hr IV . Q24H [facility] Rx#:[id number] Oral 0 Other: Voiding Method Incontinent Incontinent Incontinent Indwelling Catheter Indwelling Catheter Indwelling Catheter - Exam -GENERAL: The patient is unresponsive, no distress. Looks comfortable HEENT: Pupils are round and equally reacting to light. EOMI. No scleral icterus. No conjunctival pallor. Normocephalic, atraumatic. No pharyngeal erythema. No thyromegaly. CARDIOVASCULAR: S1 and S2 present. No murmurs, rubs, or gallops. PULMONARY: Chest is clear to auscultation, no wheezing or crackles. ABDOMEN: Soft, nontender, nondistended, normoactive bowel sounds. No palpable organomegaly. MUSCULOSKELETAL: No joint swelling or deformity. EXTREMITIES: No cyanosis, clubbing, or pedal edema. NEUROLOGICAL: Gross neurological examination did not reveal any focal deficits. SKIN: No rashes. no petechiae. Assessment and Plan Assessment: Metastatic laryngeal cancer to the bone End stage disease on hospice care, comfort care measures History of COPD History of GERD History of hypertension History of rheumatoid arthritis Plan: This is a pleasant 65 years old male who presents with hospice care for his metastatic colon cancer secondary to large cancer Comfort continue with comfort care measures Consent continue with morphine drip Prognosis is very poor DO NOT RESUSCITATE/DO NOT INTUBATE
[2021-04-06] MEDS: MORPHINE SULFATE (100 MG/2 ML) 100 MG in SODIUM CHLORIDE 0.9% 100 ML IV SCH (06:30)
[2021-04-06 12:46] VITALS: RESP 20
--- NOTE | 2021-04-06 14:01 | P.PN ---
Subjective This is a pleasant 65 years old male was admitted with pharyngeal/laryngeal cancer with metastasis. Hospice cares was already started by Dr. Meza from yesterday. Patient looks comfortable with no distress. Other chronic medical conditions including COPD, GERD, hypertension, rheumatoid arthritis. Currently patient is unresponsive and cannot provide information. It was obtained from staff and records No family at bedside when I saw the patient, however was at bedside during dayshift per staff Also there is hospice nurse note from yesterday and today were following the case closely, please refer to their input at" notes"n I saw the patient however as per staff was at bedside during the day shift. 04/06/2021 Patient is obtunded, unresponsive, does not look in distress. No family at bedside Hospice nurse and patient is actively dying and have talked to the patient as well today who agrees with management plan per their input Very poor prognosis Objective - Vital Signs Vital signs: Vital Signs Temp 98.7 F 04/04/21 21:00 Pulse 51 L 04/06/21 12:45 Resp 20 04/06/21 12:45 BP 98/62 04/04/21 21:00 Pulse Ox 76 L 04/06/21 12:45 Intake & Output 04/05/21 04/06/21 04/06/21 18:59 06:59 18:59 Intake Total 19.89 Output Total 300 200 Balance -280.11 -200 Weight 52.163 kg Intake: Intake, IV Titration 19.89 Amount Morphine Sulfate (100 mg/ 19.89 2 ml) 100 mg In Sodium Chloride 0.9% 100 ml @ 1 MG/HR 1.02 mls/hr IV . Q24H [facility] Rx#:[id number] Output: Urine 300 200 Other: Voiding Method Incontinent Incontinent Indwelling Catheter Indwelling Catheter Indwelling Catheter # Bowel Movements 1 - Exam -GENERAL: The patient is unresponsive, no distress. Looks comfortable HEENT: Pupils are round and equally reacting to light. EOMI. No scleral icterus. No conjunctival pallor. Normocephalic, atraumatic. No pharyngeal erythema. No thyromegaly. CARDIOVASCULAR: S1 and S2 present. No murmurs, rubs, or gallops. PULMONARY: Chest is clear to auscultation, no wheezing or crackles. ABDOMEN: Soft, nontender, nondistended, normoactive bowel sounds. No palpable organomegaly. MUSCULOSKELETAL: No joint swelling or deformity. EXTREMITIES: No cyanosis, clubbing, or pedal edema. NEUROLOGICAL: Gross neurological examination did not reveal any focal deficits. SKIN: No rashes. no petechiae. Assessment and Plan Assessment: Metastatic laryngeal cancer to the bone End stage disease on hospice care, comfort care measures History of COPD History of GERD History of hypertension History of rheumatoid arthritis Plan: This is a pleasant 65 years old male who presents with hospice care for his metastatic colon cancer secondary to large cancer Comfort continue with comfort care measures Consent continue with morphine drip Prognosis is very poor DO NOT RESUSCITATE/DO NOT INTUBATE
[2021-04-07 05:39] VITALS: PULSE 117
[2021-04-07] MEDS: MORPHINE SULFATE (100 MG/2 ML) 100 MG in SODIUM CHLORIDE 0.9% 100 ML IV SCH (10:59)
--- NOTE | 2021-04-07 12:40 | P.PN ---
Subjective This is a pleasant 65 years old male was admitted with pharyngeal/laryngeal cancer with metastasis. Hospice cares was already started by Dr. Meza from yesterday. Patient looks comfortable with no distress. Other chronic medical conditions including COPD, GERD, hypertension, rheumatoid arthritis. Currently patient is unresponsive and cannot provide information. It was obtained from staff and records No family at bedside when I saw the patient, however was at bedside during dayshift per staff Also there is hospice nurse note from yesterday and today were following the case closely, please refer to their input at" notes"n I saw the patient however as per staff was at bedside during the day shift. 04/06/2021 Patient is obtunded, unresponsive, does not look in distress. No family at bedside Hospice nurse and patient is actively dying and have talked to the patient as well today who agrees with management plan per their input Very poor prognosis 04/07/2021 No change from yesterday. Continue with hospice care Prognosis very poor, it may be hours or days Objective - Vital Signs Vital signs: Vital Signs Temp 98.7 F 04/04/21 21:00 Pulse 117 H 04/07/21 05:00 Resp 20 04/06/21 12:45 BP 98/62 04/04/21 21:00 Pulse Ox 86 L 04/07/21 05:00 Intake & Output 04/06/21 04/07/21 04/07/21 18:59 06:59 18:59 Intake Total 240 102 Output Total 200 Balance 40 102 Weight 52.163 kg Intake: IV 240 0.9 240 Intake, IV Titration 102 Amount Morphine Sulfate (100 mg/ 102 2 ml) 100 mg In Sodium Chloride 0.9% 100 ml @ 1 MG/HR 1.02 mls/hr IV . Q24H [facility] Rx#:[id number] Output: Urine 200 Other: Voiding Method Indwelling Catheter Indwelling Catheter Indwelling Catheter - Exam -GENERAL: The patient is unresponsive, no distress. Looks comfortable HEENT: Pupils are round and equally reacting to light. EOMI. No scleral icterus. No conjunctival pallor. Normocephalic, atraumatic. No pharyngeal erythema. No thyromegaly. CARDIOVASCULAR: S1 and S2 present. No murmurs, rubs, or gallops. PULMONARY: Chest is clear to auscultation, no wheezing or crackles. ABDOMEN: Soft, nontender, nondistended, normoactive bowel sounds. No palpable organomegaly. MUSCULOSKELETAL: No joint swelling or deformity. EXTREMITIES: No cyanosis, clubbing, or pedal edema. NEUROLOGICAL: Gross neurological examination did not reveal any focal deficits. SKIN: No rashes. no petechiae. Assessment and Plan Assessment: Metastatic laryngeal cancer to the bone End stage disease on hospice care, comfort care measures History of COPD History of GERD History of hypertension History of rheumatoid arthritis Plan: This is a pleasant 65 years old male who presents with hospice care for his metastatic colon cancer secondary to large cancer Comfort continue with comfort care measures Consent continue with morphine drip Prognosis is very poor DO NOT RESUSCITATE/DO NOT INTUBATE
[2021-04-08] MEDS: MORPHINE SULFATE (100 MG/2 ML) 100 MG in SODIUM CHLORIDE 0.9% 100 ML IV SCH (10:13)
--- NOTE | 2021-04-08 13:38 | P.PN ---
Subjective This is a pleasant 65 years old male was admitted with pharyngeal/laryngeal cancer with metastasis. Hospice cares was already started by Dr. Meza from yesterday. Patient looks comfortable with no distress. Other chronic medical conditions including COPD, GERD, hypertension, rheumatoid arthritis. Currently patient is unresponsive and cannot provide information. It was obtained from staff and records No family at bedside when I saw the patient, however was at bedside during dayshift per staff Also there is hospice nurse note from yesterday and today were following the case closely, please refer to their input at" notes"n I saw the patient however as per staff was at bedside during the day shift. 04/06/2021 Patient is obtunded, unresponsive, does not look in distress. No family at bedside Hospice nurse and patient is actively dying and have talked to the patient as well today who agrees with management plan per their input Very poor prognosis 04/07/2021 No change from yesterday. Continue with hospice care Prognosis very poor, it may be hours or days 04/08/2021 Clinically the same, distended, unresponsive On hospice care. Looks comfortable with current regimen Objective - Vital Signs Vital signs: Vital Signs Temp 98.7 F 04/04/21 21:00 Pulse 117 H 04/07/21 05:00 Resp 20 04/06/21 12:45 BP 98/62 04/04/21 21:00 Pulse Ox 86 L 04/07/21 05:00 Intake & Output 04/07/21 04/08/21 04/08/21 18:59 06:59 18:59 Intake Total 102 102 Output Total 300 Balance 102 -198 Intake: Intake, IV Titration 102 102 Amount Morphine Sulfate (100 mg/ 102 102 2 ml) 100 mg In Sodium Chloride 0.9% 100 ml @ 1 MG/HR 1.02 mls/hr IV . Q24H [facility] Rx#:[id number] Oral 0 Output: Urine 300 Other: Voiding Method Indwelling Catheter Indwelling Catheter Indwelling Catheter - Exam -GENERAL: The patient is unresponsive, no distress. Looks comfortable HEENT: Pupils are round and equally reacting to light. EOMI. No scleral icterus. No conjunctival pallor. Normocephalic, atraumatic. No pharyngeal erythema. No thyromegaly. CARDIOVASCULAR: S1 and S2 present. No murmurs, rubs, or gallops. PULMONARY: Chest is clear to auscultation, no wheezing or crackles. ABDOMEN: Soft, nontender, nondistended, normoactive bowel sounds. No palpable organomegaly. MUSCULOSKELETAL: No joint swelling or deformity. EXTREMITIES: No cyanosis, clubbing, or pedal edema. NEUROLOGICAL: Gross neurological examination did not reveal any focal deficits. SKIN: No rashes. no petechiae. Assessment and Plan Assessment: Metastatic laryngeal cancer to the bone End stage disease on hospice care, comfort care measures History of COPD History of GERD History of hypertension History of rheumatoid arthritis Plan: This is a pleasant 65 years old male who presents with hospice care for his metastatic colon cancer secondary to large cancer Comfort continue with comfort care measures Consent continue with morphine drip Prognosis is very poor DO NOT RESUSCITATE/DO NOT INTUBATE
== END 2021-04-08 21:07 | disposition expired | DRG 951 ==
LOC: 5NMEDONC 18:35
PROVIDERS: ADMIT Internal Medicine; ATTEND Internal Medicine
DX: Z51.5 Encounter for palliative care (principal); E43 Unspecified severe protein-calorie malnutrition; Z68.1 Body mass index [BMI] 19.9 or less, adult; E87.1 Hypo-osmolality and hyponatremia; C79.51 Secondary malignant neoplasm of bone; G89.3 Neoplasm related pain (acute) (chronic); C14.0 Malignant neoplasm of pharynx, unspecified; C32.9 Malignant neoplasm of larynx, unspecified; E86.1 Hypovolemia; I10 Essential (primary) hypertension; Z20.822 Contact with and (suspected) exposure to COVID-19; J44.9 Chronic obstructive pulmonary disease, unspecified; K21.9 Gastro-esophageal reflux disease without esophagitis; M06.9 Rheumatoid arthritis, unspecified; Z87.891 Personal history of nicotine dependence; Z93.0 Tracheostomy status; Z66 Do not resuscitate
CPT/HCPCS: 87635